=== PATIENT | male | born 1930 | race Caucasian/White ===

== ENCOUNTER → 2017-02-11 | Outpatient (REF) | payer MEDICARE, OTHER ==
[~2017-02-11] MED LIST: ASPI325T OR; ASPI81TA83 OR; ATEN25TA OR; COZA50TA18 OR; LEVO112T OR; NITR0.4S SL; TERA2CAP3 OR; ZOCO5TAB OR
[2017-02-11 14:21] LABS: BASO % 0.3 % (0.0-1.0); EOS # 0.2 K/mm3 (0.0-0.50); EOS % 4.1 % (0.0-3.0); LARGE UNSTAINED CELL # 0.1 K/mm3 (0.0-0.4); LARGE UNSTAINED CELL % 2.6 % (0.0-4.0); LYMPH # 1.2 K/mm3 (1.5-4.5); LYMPH % 22.2 % (24.0-44.0); MEAN CORPUSCULAR HEMOGLOBIN 30.5 pg (27.0-33.0); MEAN CORPUSCULAR HGB CONC 33.1 g/dl (32.0-36.5); MEAN CORPUSCULAR VOLUME 92.3 fl (80.0-96.0); MONO # 0.3 K/mm3 (0.0-0.8); MONO % 5.9 % (0.0-5.0); NEUTROPHILS # 3.5 K/mm3 (1.8-7.7); NEUTROPHILS % 64.8 % (36.0-66.0); PLATELET COUNT, AUTOMATED 188 k/mm3 (150-450); RED CELL DISTRIBUTION WIDTH 13.8 % (11.5-14.5); WHITE BLOOD COUNT 5.4 K/mm3 (4.0-10.0)
[2017-02-11 14:34] LABS: ALBUMIN 3.5 GM/DL (3.2-5.2); ALKALINE PHOSPHATASE 90 U/L (45-117); ALT/SGPT 22 U/L (12-78); ANION GAP 6 MEQ/L (8-16); AST/SGOT 21 U/L (15-37); BILIRUBIN,TOTAL 0.8 MG/DL (0.2-1.0); BLOOD UREA NITROGEN 20 MG/DL (7-18); CALCIUM LEVEL 9.1 MG/DL (8.8-10.2); CARBON DIOXIDE LEVEL 31 MEQ/L (21-32); CHLORIDE LEVEL 103 MEQ/L (98-107); CHOLESTEROL LEVEL 166 MG/DL (<200); CREATININE FOR GFR 0.95 MG/DL (0.70-1.30); GLOMERULAR FILTRATION RATE > 60.0 (>35); GLUCOSE, FASTING 86 MG/DL (83-110); POTASSIUM SERUM 4.5 MEQ/L (3.5-5.1); SODIUM LEVEL 140 MEQ/L (136-145); TOTAL PROTEIN 6.2 GM/DL (6.4-8.2); TRIGLYCERIDES LEVEL 66 MG/DL (<150)
== END ==
LOC: M LAB REF 12:25
PROVIDERS: ATTEND Family Medicine
DX: E03.9 Hypothyroidism, unspecified (principal); E53.8 Deficiency of other specified B group vitamins; R73.01 Impaired fasting glucose
CPT/HCPCS: 80053; 80061; 81001; 82043; 83036; 84443; 85025; G0103

== ENCOUNTER → 2017-02-26 | Outpatient (CLI) | payer MEDICARE, OTHER ==
--- NOTE | 2017-02-26 11:09 | REP ---
Clinical: Pain. Technique: AP, lateral, bilateral oblique views of the right and left foot. Findings: Age-related arthritic degenerative changes (left greater than right) include subchondral sclerosis, joint space narrowing and subtle marginal spurring at the interphalangeal joints as well as slightly more pronounced degenerative changes at the first tarsometatarsal joints (left greater than right). Mild hallux valgus deformity of the left first digit is also suggested. Degenerative changes to the midfoot including tarsometatarsal joints also includes subchondral sclerosis and areas of joint space narrowing less pronounced than the interphalangeal joints. No acute fracture dislocation. Impression: Moderate arthritic degenerative changes (left greater than right). Signed by Fermin Benitez MD 02/26/2017 11:00 A
== END ==
LOC: M WUC 10:09
PROVIDERS: ATTEND Physician Assistant Medical
DX: M19.071 Primary osteoarthritis, right ankle and foot (principal); M19.072 Primary osteoarthritis, left ankle and foot

== ENCOUNTER → 2017-02-28 | Outpatient (CLI) | payer MEDICARE, OTHER ==
[~2017-02-28] MED LIST changes: +GASTROGRAFIN SOLUTION 30ML (Q9963) As Ordered ONE; +ISOVUE-370 76% 100ML VIAL (Q9967) As Ordered ONE
--- NOTE | 2017-02-28 15:38 | REP ---
Clinical: Inguinal hernia with pain. Technique: Axial contrast enhanced images from the lung bases to the pubic symphysis using oral and 100 ml Isovue 370 intravenous contrast material with precontrast and delayed images of the abdomen as well as coronal and sagittal re-formations. Comparison: 09/11/2006. Findings: Moderate circumferential pleuroparenchymal changes involving the visualized right hemithorax with chronic right basilar atelectasis and calcification remain essentially unchanged compared to 2005. Cardiomegaly is identified along with mild chronic pulmonary vascular congestion. Liver, pancreas, gallbladder, and bilateral adrenal glands are normal. Splenic calcifications consistent with prior granulomatous disease. Kidneys demonstrate bilateral cysts measuring 3.2 cm in the right kidney upper pole and 2.2 cm left kidney mid pole. No associated hydronephrosis or nephrolithiasis. A small moderate gastric hiatal hernia is noted. Evaluation of the enteric system demonstrates moderate fecal stasis along with scattered colonic and sigmoid diverticula and no evidence for acute diverticulitis. There is a small left inguinal hernia containing a single loop of nonobstructed small bowel. Pelvis demonstrates partially collapsed bladder with mass effect due to enlarged prostate gland. No ascites. No free air. No significant intraperitoneal or retroperitoneal adenopathy. Atherosclerotic changes to the vasculature noted without aortic aneurysm or dissection. Skeletal structures demonstrate degenerative changes without focal osseous abnormality. Impression: 1. Small left inguinal hernia containing nonobstructed loop of small bowel. A 2 cm fat containing periumbilical hernia also identified. 2. Bilateral renal cysts up to 3.2 cm. 3. Colonic diverticula without acute diverticulitis. 4. Heterogeneous enlarged prostate gland with mass effect on the base of the bladder and scattered parenchymal calcifications. 5. Lung bases demonstrate chronic pleuroparenchymal changes, atelectasis and calcification involving the right hemithorax essentially stable compared to 2005. Cardiomegaly and chronic pulmonary vascular congestion is also suggested. Signed by Fermin Benitez MD 02/28/2017 03:30 P
== END ==
LOC: M RAD 12:55
PROVIDERS: ATTEND Family Medicine
DX: K40.31 Unilateral inguinal hernia, with obstruction, without gangrene, recurrent (principal); N28.1 Cyst of kidney, acquired; R91.8 Other nonspecific abnormal finding of lung field
CPT/HCPCS: 74178; G0463; Q9963; Q9967

== ENCOUNTER → 2017-04-01 | Outpatient (CLI) | payer MEDICARE, OTHER ==
[~2017-04-01] MED LIST changes: -GASTROGRAFIN SOLUTION 30ML (Q9963) As Ordered ONE; -ISOVUE-370 76% 100ML VIAL (Q9967) As Ordered ONE
[2017-04-01 15:06] LABS: VITAMIN B12 LEVEL 554 PG/ML (247-911)
[2017-04-01 15:14] LABS: ALBUMIN 3.3 GM/DL (3.2-5.2); ALBUMIN/GLOBULIN RATIO 1.22 (1.00-1.93); ALKALINE PHOSPHATASE 83 U/L (45-117); ALT/SGPT 19 U/L (12-78); ANION GAP 5 MEQ/L (8-16); AST/SGOT 16 U/L (15-37); BILIRUBIN,TOTAL 0.7 MG/DL (0.2-1.0); BLOOD UREA NITROGEN 19 MG/DL (7-18); CALCIUM LEVEL 9.1 MG/DL (8.8-10.2); CARBON DIOXIDE LEVEL 33 MEQ/L (21-32); CHLORIDE LEVEL 99 MEQ/L (98-107); CREATININE FOR GFR 0.99 MG/DL (0.70-1.30); FERRITIN 168 NG/ML (26-388); FREE T4 1.42 NG/DL (0.76-1.46); GLOMERULAR FILTRATION RATE > 60.0 (>35); GLUCOSE, FASTING 111 MG/DL (83-110); MAGNESIUM LEVEL 2.2 MG/DL (1.8-2.4); PERCENT SATURATION 28.6 % (19.7-37.4); SODIUM LEVEL 137 MEQ/L (136-145); TOTAL IRON BINDING CAPACITY 276 UG/DL (250-450)
[2017-04-01 15:22] LABS: POTASSIUM SERUM 5.3 MEQ/L (3.5-5.1)
== END ==
LOC: M WUC 10:44
PROVIDERS: ATTEND Family Medicine
DX: I12.9 Hypertensive chronic kidney disease with stage 1 through stage 4 chronic kidney disease, or unspecified chronic kidney disease (principal); E53.8 Deficiency of other specified B group vitamins; E03.9 Hypothyroidism, unspecified; R73.01 Impaired fasting glucose; N18.9 Chronic kidney disease, unspecified

== ENCOUNTER 2017-05-13 08:45 | Day surgery (SDC) | payer MEDICARE, OTHER ==
[~2017-05-13] VITALS: Ht 180.3 cm; Wt 81.6 kg
[~2017-05-13 08:45] MED LIST changes: +ASPI1TAB PO; +CALC-195 PO; +CODCAP PO; +FLOM5CAP PO; +FURO20TA2 PO; +GINS100C2 PO; +LEVO112T2 PO; +LOSA25TA8 PO; +MULT1TAB10 PO; +NITR0.4S14 SL; +RED1CAP5 PO; +VITA500C24 PO; +VITA50TA43 PO
[2017-05-13] MEDS ORDERED: LR 1,000 ML IV ONE (09:00)
[2017-05-13] MEDS ORDERED: LR 1,000 ML IV SCH ×3 (09:00→13:15)
[2017-05-13] MEDS ORDERED: ceFAZolin SOD 1 GM in D5W MINI-BAG PLUS 50 ML IV ONE (09:00)
[2017-05-13] MEDS ORDERED: LIDOCAINE 1% MDV 20ML VIAL SC PRN (09:00)
[2017-05-13] MEDS ORDERED: BUPIVACAINE/EPIN 0.25% 30 ML VIAL As Ordered ONE (11:03)
[2017-05-13] MEDS ORDERED: fentaNYL 100 MCG/2 ML INJECTION (J3010) As Ordered ONE (11:42)
[2017-05-13] MEDS ORDERED: PROPOFOL 500 MG/50 ML VIAL As Ordered ONE (11:42)
[2017-05-13] MEDS ORDERED: ROCURONIUM BROMIDE 50 MG/5 ML VIAL/SYRINGE As Ordered ONE (11:42)
[2017-05-13] MEDS ORDERED: MIDAZOLAM INJ 2 MG/2 ML VIAL (J2250) As Ordered ONE (11:42)
[2017-05-13] MEDS ORDERED: dexameTHASONE 4 MG/ML 1ML VIAL (J1100) As Ordered ONE (11:42)
[2017-05-13] MEDS ORDERED: ONDANSETRON 4MG/2ML VIAL (J2405) As Ordered ONE (11:43)
[2017-05-13] MEDS ORDERED: ePHEDrine SULFATE 25 MG/5 ML(5MG/ML) SYRINGE As Ordered ONE (11:44)
[2017-05-13] MEDS ORDERED: LIDOCAINE 2% INJ 100 MG/5 ML SDV (FOR ANES.) As Ordered ONE (11:44)
[2017-05-13] MEDS ORDERED: PHENYLephrine HCL 500 MCG/5 ML (100MCG/ML) SYRINGE (J2370) As Ordered ONE (12:10)
[2017-05-13] MEDS ORDERED: GLYCOPYRROLATE INJ 0.2 MG/ML 2 ML VIAL As Ordered ONE (12:21)
[2017-05-13] MEDS ORDERED: NEOSTIGMINE 1MG/ML 5 ML SYRINGE (J2710) As Ordered ONE (12:21)
--- NOTE | 2017-05-13 13:11 | RO ---
DATE OF PROCEDURE: 05/13/2017 PREOPERATIVE DIAGNOSIS: Recurrent left inguinal hernia. POSTOPERATIVE DIAGNOSIS: Recurrent left inguinal hernia. PROCEDURE: Repair of recurrent left inguinal hernia with Ultra Pro mesh. SURGEON: Aftab Heller MD ANESTHESIA: General endotracheal anesthesia. ESTIMATED BLOOD LOSS: Minimal. FLUIDS: Crystalloid. PROCEDURE SUMMARY: The patient was brought to the operating room and was given general anesthesia. After adequate anesthesia was established, the patient was prepped and draped in the usual sterile fashion. Next, a left inguinal incision was made with a skin knife. Electrocautery was used to cut through dermis and underlying subcutaneous tissue down to the external oblique muscle fibers. External oblique muscle fibers were opened along its length down through the external ring. The cord and its structures were mobilized off the inguinal ligament and Italo drain was placed around this. The patient had a small lipoma in the cord lateral to the cord structures itself that was dissected down to the level of the cord and transected at its base with electrocautery; however, there was a moderately large direct inguinal hernia that was medial to the cord structures that was mobilized off the cord structures itself, off underlying structures and tissue and off transversus abdominis muscle. The neck of the sac extended to the transversus abdominis muscle medial to the internal ring. The previous mesh could be felt and did not extend below this area and I anticipate the mesh itself probably folded up the base of this and the hernia was able to go behind the mesh itself into this direct area. In any case, this was imbricated with #2-0 Vicryl suture in the transverse abdominis muscle layer. Once this was imbricated nicely and the hole was closed, the Ultra Pro mesh was cut to the appropriate size and tacked in at the pubis and along the internal oblique with Secure Strap along the inguinal ligament and interrupted #2-0 PDS was placed. The tails of the mesh were brought together with #2-0 Vicryl and #2-0 Vicryl was used to close the external oblique over the top of the mesh and the cord structures. The ilioinguinal nerve was kept with the cord structures throughout the dissection and left in place with the Italo drain around this. The Wallace's layer was brought together with #3-0 Vicryl. #3-0 Vicryl was used to approximate dermis and #4-0 Vicryl subcuticular was used to approximate the skin. Steri-Strips and dry sterile dressing was applied. The patient was brought to the recovery room awake, alert, hemodynamically stable. Sponge and needle counts correct times two.
[2017-05-13] MEDS ORDERED: ONDANSETRON 4MG/2ML VIAL (J2405) IV PRN ×2 (13:15)
[2017-05-13] MEDS ORDERED: MORPHINE 2 MG/ML 1ML SYRINGE IV PRN (13:15)
[2017-05-13] MEDS ORDERED: fentaNYL 100 MCG/2 ML INJECTION (J3010) IV PRN (13:15)
[2017-05-13] MEDS ORDERED: NORCO, ANEXSIA 5/325MG TABLET (HYDROcodone/ACETAMINOPHEN) PO PRN (13:15)
[2017-05-13] MEDS ORDERED: PERCOCET 5MG/325MG TAB PO PRN (13:15)
[2017-05-13] MEDS ORDERED: HYDROmorphone HCL 1 MG/ML SYRINGE (J1170) IV PRN (13:15)
[2017-05-13 14:42] VITALS: BP 151/65
== END 2017-05-13 15:02 | disposition home or self-care (01) ==
LOC: M SDC 08:45
PROVIDERS: ATTEND Surgery
DX: K40.91 Unilateral inguinal hernia, without obstruction or gangrene, recurrent (principal); I10 Essential (primary) hypertension; I25.10 Atherosclerotic heart disease of native coronary artery without angina pectoris; I25.2 Old myocardial infarction; E03.9 Hypothyroidism, unspecified; G47.30 Sleep apnea, unspecified; K21.9 Gastro-esophageal reflux disease without esophagitis; N40.0 Benign prostatic hyperplasia without lower urinary tract symptoms; Z88.2 Allergy status to sulfonamides; Z79.82 Long term (current) use of aspirin; Z79.899 Other long term (current) drug therapy
CPT/HCPCS: 49520; C1781; J0690; J1100; J2250; J2370; J2405; J2710; J3010

== ENCOUNTER → 2017-06-30 | Outpatient (CLI) | payer MEDICARE, OTHER ==
[2017-06-30 18:24] LABS: VITAMIN B12 LEVEL 436 PG/ML (247-911)
[2017-06-30 18:30] LABS: ALBUMIN 3.2 GM/DL (3.2-5.2); ALBUMIN/GLOBULIN RATIO 1.33 (1.00-1.93); ALKALINE PHOSPHATASE 86 U/L (45-117); ALT/SGPT 20 U/L (12-78); ANION GAP 2 MEQ/L (8-16); AST/SGOT 15 U/L (15-37); BILIRUBIN,TOTAL 0.6 MG/DL (0.2-1.0); BLOOD UREA NITROGEN 16 MG/DL (7-18); CALCIUM LEVEL 9.1 MG/DL (8.8-10.2); CARBON DIOXIDE LEVEL 33 MEQ/L (21-32); CHLORIDE LEVEL 102 MEQ/L (98-107); FERRITIN 132 NG/ML (26-388); FREE T4 1.04 NG/DL (0.76-1.46); GLOMERULAR FILTRATION RATE > 60.0 (>35); GLUCOSE, FASTING 73 MG/DL (83-110); MAGNESIUM LEVEL 2.2 MG/DL (1.8-2.4); PERCENT SATURATION 29.3 % (19.7-50.0); SODIUM LEVEL 137 MEQ/L (136-145); TOTAL IRON BINDING CAPACITY 263 UG/DL (250-450); TOTAL PROTEIN 5.6 GM/DL (6.4-8.2)
[2017-06-30 18:33] LABS: POTASSIUM SERUM 5.3 MEQ/L (3.5-5.1)
== END ==
LOC: M WUC 11:28
PROVIDERS: ATTEND Family Medicine
DX: I10 Essential (primary) hypertension (principal); E53.8 Deficiency of other specified B group vitamins; E03.9 Hypothyroidism, unspecified; R73.01 Impaired fasting glucose; N40.1 Benign prostatic hyperplasia with lower urinary tract symptoms; E78.2 Mixed hyperlipidemia

== ENCOUNTER → 2017-07-04 | Outpatient (REF) | payer MEDICARE, OTHER | LOC: M SFHCPLAZ 12:33 | PROVIDERS: ATTEND Family Medicine | DX: N40.1 Benign prostatic hyperplasia with lower urinary tract symptoms (principal) | CPT/HCPCS: 81001; 87086; G0463 ==

== ENCOUNTER → 2017-07-10 | Outpatient (CLI) | payer MEDICARE, OTHER | LOC: M RAD 12:37 | PROVIDERS: ATTEND Family Medicine | DX: M43.06 Spondylolysis, lumbar region (principal) ==

== ENCOUNTER → 2018-02-04 | Outpatient (CLI) | payer MEDICARE, OTHER ==
[2018-02-04 11:59] LABS: BASO % 0.5 % (0.0-1.0); EOS # 0.2 10^3/uL (0.0-0.50); EOS % 4.1 % (0.0-3.0); HEMATOCRIT 45.2 % (42.0-52.0); IMMATURE GRANULOCYTE % 0.3 % (0-3.0); LYMPH # 1.3 10^3/uL (1.5-4.5); LYMPH % 21.5 % (24.0-44.0); MEAN CORPUSCULAR HGB CONC 33.2 g/dl (32.0-36.5); MEAN CORPUSCULAR VOLUME 87.3 fl (80.0-96.0); MONO # 0.6 10^3/uL (0.0-0.8); NEUTROPHILS # 3.7 10^3/uL (1.8-7.7); NEUTROPHILS % 63.6 % (36.0-66.0); PLATELET COUNT, AUTOMATED 200 10^3/uL (150-450); RED BLOOD COUNT 5.18 10^6/uL (4.30-6.10); RED CELL DISTRIBUTION WIDTH 14.8 % (11.5-14.5); WHITE BLOOD COUNT 5.8 10^3/uL (4.0-10.0)
[2018-02-04 12:00] LABS: APPEARANCE, URINE CLEAR (CLEAR); BACTERIA, URINE AUTO NEGATIVE (NEGATIVE); BILIRUBIN, URINE AUTO NEGATIVE (NEGATIVE); BLOOD, URINE BLOOD NEGATIVE (NEGATIVE); COLOR, URINE YELLOW (YELLOW); GLUCOSE, URINE (UA) AUTO NEGATIVE (NEGATIVE); KETONE, URINE AUTO NEGATIVE (NEGATIVE); LEUKOCYTE ESTERASE, URINE AUTO NEGATIVE (NEGATIVE); NITRITE, URINE AUTO NEGATIVE (NEGATIVE); PROTEIN, URINE AUTO NEGATIVE (NEGATIVE); RBC, URINE AUTO 2 /HPF (0-3); SPECIFIC GRAVITY URINE AUTO 1.013 (1.002-1.035); SQUAMOUS EPITHELIAL CELL UR AU 0 /HPF (0-6); UROBILINOGEN, URINE AUTO 0.2 mg/dL (0.0-2.0); WBC, URINE AUTO 0 /HPF (0-3)
[2018-02-04 12:08] LABS: HEMATOCRIT 45.2 % (42.0-52.0)
[2018-02-04 12:16] LABS: C REACTIVE PROTEIN QUANTITATIV < 0.30 MG/DL (0.00-0.30); CHOLESTEROL LEVEL 113 MG/DL (<200); CHOLESTEROL RISK RATIO 1.765 (<5); FREE T4 1.35 NG/DL (0.76-1.46); HDL CHOLESTEROL 64 MG/DL (>40); LDL CHOLESTEROL 37.6 MG/DL (<100); NON-HDL-C 49 MG/DL; PROSTATIC SPECIFIC AG MONITOR 1.08 NG/ML (< 4.0); TRIGLYCERIDES LEVEL 57 MG/DL (<150)
[2018-02-04 12:33] LABS: VITAMIN B12 LEVEL 356 PG/ML (247-911)
[2018-02-04 13:24] LABS: ESTIMATED AVERAGE GLUCOSE 117 MG/DL (60-110); HEMOGLOBIN A1c 5.7 %
[2018-02-06 14:32] LABS: PRETREATED FOLATE FOR RBCFOL 11.5 NG/ML; RBC FOLATE 534.3 NG/ML (280-791)
== END ==
LOC: M WUC 08:25
DX: N40.1 Benign prostatic hyperplasia with lower urinary tract symptoms (principal); E53.8 Deficiency of other specified B group vitamins; E03.9 Hypothyroidism, unspecified; R73.01 Impaired fasting glucose; M47.816 Spondylosis without myelopathy or radiculopathy, lumbar region; E78.2 Mixed hyperlipidemia
CPT/HCPCS: 84443

== ENCOUNTER 2018-03-18 14:18 | Emergency (ER) | payer MEDICARE, OTHER | END 2018-03-18 15:04 | disposition home or self-care (01) | LOC: M ED 14:18 | DX: S00.93XA Contusion of unspecified part of head, initial encounter (principal); W20.8XXA Other cause of strike by thrown, projected or falling object, initial encounter; Y92.009 Unspecified place in unspecified non-institutional (private) residence as the place of occurrence of the external cause; I10 Essential (primary) hypertension; I25.10 Atherosclerotic heart disease of native coronary artery without angina pectoris; G47.33 Obstructive sleep apnea (adult) (pediatric); E78.70 Disorder of bile acid and cholesterol metabolism, unspecified; E07.9 Disorder of thyroid, unspecified; M51.9 Unspecified thoracic, thoracolumbar and lumbosacral intervertebral disc disorder; Z79.01 Long term (current) use of anticoagulants; Z79.82 Long term (current) use of aspirin; Z79.890 Hormone replacement therapy; Z79.899 Other long term (current) drug therapy; Z95.1 Presence of aortocoronary bypass graft; Z95.2 Presence of prosthetic heart valve; Z98.890 Other specified postprocedural states; Z88.1 Allergy status to other antibiotic agents; Z88.2 Allergy status to sulfonamides | CPT/HCPCS: 70450 ==

== ENCOUNTER → 2018-05-04 | Outpatient (CLI) | payer MEDICARE, OTHER ==
[2018-05-04 12:59] LABS: BASO % 0.5 % (0.0-1.0); EOS # 0.3 10^3/uL (0.0-0.50); EOS % 4.3 % (0.0-3.0); HEMATOCRIT 45.4 % (42.0-52.0); HEMOGLOBIN 15.2 g/dl (13.5-17.5); IMMATURE GRANULOCYTE % 0.3 % (0-3.0); LYMPH # 1.2 10^3/uL (1.5-4.5); LYMPH % 20.4 % (24.0-44.0); MEAN CORPUSCULAR HEMOGLOBIN 29.1 pg (27.0-33.0); MEAN CORPUSCULAR HGB CONC 33.5 g/dl (32.0-36.5); MONO # 0.5 10^3/uL (0.0-0.8); MONO % 8.2 % (0.0-5.0); NEUTROPHILS % 66.3 % (36.0-66.0); PLATELET COUNT, AUTOMATED 184 10^3/uL (150-450); RED BLOOD COUNT 5.22 10^6/uL (4.30-6.10); RED CELL DISTRIBUTION WIDTH 14.8 % (11.5-14.5); RETIC HEMOGLOBIN EQUIVALENT 34.1 pg (24-36); RETICULOCYTE # 59.5 10^9/L (17-77); RETICULOCYTE % 1.1 % (0.5-1.5); WHITE BLOOD COUNT 6.1 10^3/uL (4.0-10.0)
[2018-05-04 13:21] LABS: PTH INTACT 56.5 PG/ML (18.5-88.0); VITAMIN B12 LEVEL 660 PG/ML (247-911)
[2018-05-04 13:28] LABS: ALBUMIN 3.4 GM/DL (3.2-5.2); ALBUMIN/GLOBULIN RATIO 1.21 (1.00-1.93); ALKALINE PHOSPHATASE 92 U/L (45-117); ALT/SGPT 29 U/L (12-78); ANION GAP 5 MEQ/L (8-16); AST/SGOT 20 U/L (7-37); BILIRUBIN,TOTAL 0.9 MG/DL (0.2-1.0); BLOOD UREA NITROGEN 20 MG/DL (7-18); CARBON DIOXIDE LEVEL 32 MEQ/L (21-32); CHLORIDE LEVEL 105 MEQ/L (98-107); CREATININE FOR GFR 0.96 MG/DL (0.70-1.30); GLOMERULAR FILTRATION RATE > 60.0 (>35); GLUCOSE, FASTING 92 MG/DL (70-100); MAGNESIUM LEVEL 2.1 MG/DL (1.8-2.4); POTASSIUM SERUM 4.7 MEQ/L (3.5-5.1); SODIUM LEVEL 142 MEQ/L (136-145); TOTAL PROTEIN 6.2 GM/DL (6.4-8.2)
[2018-05-04 14:06] LABS: ESTIMATED AVERAGE GLUCOSE 123 MG/DL (60-110); HEMOGLOBIN A1c 5.9 %
== END ==
LOC: M WUC 08:11
DX: E53.8 Deficiency of other specified B group vitamins (principal); E55.9 Vitamin D deficiency, unspecified; R73.01 Impaired fasting glucose; I10 Essential (primary) hypertension; E03.9 Hypothyroidism, unspecified
CPT/HCPCS: 83735

== ENCOUNTER → 2018-05-22 | Outpatient (REF) | payer MEDICARE, OTHER | LOC: M SFHCPLAZ 12:04 | DX: N40.1 Benign prostatic hyperplasia with lower urinary tract symptoms (principal); Z53.8 Procedure and treatment not carried out for other reasons ==

== ENCOUNTER → 2018-05-27 | Outpatient (CLI) | payer MEDICARE, OTHER | LOC: M RAD 14:57 | DX: N40.1 Benign prostatic hyperplasia with lower urinary tract symptoms (principal) | CPT/HCPCS: 76857 ==

== ENCOUNTER → 2018-06-05 | Outpatient (REF) | payer MEDICARE, OTHER ==
[2018-06-05 15:29] LABS: BASO % 0.4 % (0.0-1.0); EOS # 0.1 10^3/uL (0.0-0.50); EOS % 2.5 % (0.0-3.0); HEMATOCRIT 42.8 % (42.0-52.0); HEMOGLOBIN 14.1 g/dl (13.5-17.5); IMMATURE GRANULOCYTE % 0.4 % (0-3.0); LYMPH % 17.9 % (24.0-44.0); MEAN CORPUSCULAR HEMOGLOBIN 29.4 pg (27.0-33.0); MEAN CORPUSCULAR HGB CONC 32.9 g/dl (32.0-36.5); MEAN CORPUSCULAR VOLUME 89.4 fl (80.0-96.0); MONO # 0.6 10^3/uL (0.0-0.8); MONO % 9.8 % (0.0-5.0); NEUTROPHILS # 3.9 10^3/uL (1.8-7.7); PLATELET COUNT, AUTOMATED 160 10^3/uL (150-450); RED BLOOD COUNT 4.79 10^6/uL (4.30-6.10); RED CELL DISTRIBUTION WIDTH 14.9 % (11.5-14.5); RETIC HEMOGLOBIN EQUIVALENT 35.2 pg (24-36); RETICULOCYTE # 56.5 10^9/L (17-77); RETICULOCYTE % 1.2 % (0.5-1.5); WHITE BLOOD COUNT 5.7 10^3/uL (4.0-10.0)
[2018-06-05 15:33] LABS: APPEARANCE, URINE HAZY (CLEAR); BACTERIA, URINE AUTO NEGATIVE (NEGATIVE); BILIRUBIN, URINE AUTO NEGATIVE (NEGATIVE); BLOOD, URINE BLOOD NEGATIVE (NEGATIVE); COLOR, URINE YELLOW (YELLOW); GLUCOSE, URINE (UA) AUTO NEGATIVE (NEGATIVE); KETONE, URINE AUTO NEGATIVE (NEGATIVE); LEUKOCYTE ESTERASE, URINE AUTO NEGATIVE (NEGATIVE); NITRITE, URINE AUTO NEGATIVE (NEGATIVE); PROTEIN, URINE AUTO NEGATIVE (NEGATIVE); RBC, URINE AUTO 2 /HPF (0-3); SPECIFIC GRAVITY URINE AUTO 1.019 (1.002-1.035); SQUAMOUS EPITHELIAL CELL UR AU 0 /HPF (0-6); UROBILINOGEN, URINE AUTO 0.2 mg/dL (0.0-2.0); WBC, URINE AUTO 0 /HPF (0-3)
[2018-06-05 15:44] LABS: ESTIMATED AVERAGE GLUCOSE 117 MG/DL (60-110); HEMOGLOBIN A1c 5.7 %
[2018-06-05 15:49] LABS: ALKALINE PHOSPHATASE 107 U/L (45-117); ALT/SGPT 23 U/L (12-78); ANION GAP 7 MEQ/L (8-16); AST/SGOT 16 U/L (7-37); BILIRUBIN,TOTAL 0.5 MG/DL (0.2-1.0); BLOOD UREA NITROGEN 20 MG/DL (7-18); CALCIUM LEVEL 8.5 MG/DL (8.8-10.2); CARBON DIOXIDE LEVEL 30 MEQ/L (21-32); CHLORIDE LEVEL 101 MEQ/L (98-107); CREATININE FOR GFR 0.95 MG/DL (0.70-1.30); FREE T4 1.15 NG/DL (0.76-1.46); GLOMERULAR FILTRATION RATE > 60.0 (>35); GLUCOSE, FASTING 106 MG/DL (70-100); POTASSIUM SERUM 4.5 MEQ/L (3.5-5.1); SODIUM LEVEL 138 MEQ/L (136-145); TOTAL PROTEIN 5.5 GM/DL (6.4-8.2)
[2018-06-05 21:41] LABS: PSA SCREENING 1.15 NG/ML (< 4.0)
== END ==
LOC: M SFHCPLAZ 09:12
DX: N40.1 Benign prostatic hyperplasia with lower urinary tract symptoms (principal); E03.9 Hypothyroidism, unspecified; R73.01 Impaired fasting glucose; N18.3 Chronic kidney disease, stage 3 (moderate); Z12.5 Encounter for screening for malignant neoplasm of prostate
CPT/HCPCS: 84443

== ENCOUNTER → 2018-09-21 | Outpatient (REF) | payer MEDICARE, OTHER ==
[~2018-09-21] MED LIST changes: -CODCAP PO; +CODCAP4 PO; +FLOM0.4C39 PO; -FLOM5CAP PO; +LIPI20TA PO; +LOSA25TA33 PO; -LOSA25TA8 PO
[2018-09-21 13:39] LABS: APPEARANCE, URINE HAZY (CLEAR); BACTERIA, URINE AUTO NEGATIVE (NEGATIVE); BILIRUBIN, URINE AUTO NEGATIVE (NEGATIVE); BLOOD, URINE BLOOD NEGATIVE (NEGATIVE); COLOR, URINE YELLOW (YELLOW); GLUCOSE, URINE (UA) AUTO NEGATIVE (NEGATIVE); KETONE, URINE AUTO NEGATIVE (NEGATIVE); LEUKOCYTE ESTERASE, URINE AUTO NEGATIVE (NEGATIVE); MUCUS, URINE SMALL (NEGATIVE); NITRITE, URINE AUTO NEGATIVE (NEGATIVE); PROTEIN, URINE AUTO NEGATIVE (NEGATIVE); RBC, URINE AUTO 4 /HPF (0-3); SPECIFIC GRAVITY URINE AUTO 1.018 (1.002-1.035); SQUAMOUS EPITHELIAL CELL UR AU 0 /HPF (0-6); UROBILINOGEN, URINE AUTO 0.2 mg/dL (0.0-2.0); WBC, URINE AUTO 1 /HPF (0-3)
== END ==
LOC: M SFHCPLAZ 12:51
PROVIDERS: ATTEND Nurse Practitioner Family
DX: N40.1 Benign prostatic hyperplasia with lower urinary tract symptoms (principal)

== ENCOUNTER 2018-12-08 17:44 | Inpatient (IN) | payer MEDICARE, OTHER ==
[~2018-12-08] VITALS: Ht 177.8 cm; Wt 74.9 kg
[~2018-12-08 17:44] MED LIST changes: +LOSA25TA14 PO; -LOSA25TA33 PO
[2018-12-08 18:10] LABS: VENOUS BASE EXCESS 0.1 (-2.0-2.0); VENOUS O2 SATURATION 88.7 % (60.0-80.0); VENOUS PARTIAL PRESSURE CO2 36.8 mmHg (38.0-50.0); VENOUS PARTIAL PRESSURE O2 52.9 mmHg (30.0-50.0); VENOUS PH 7.433 UNITS (7.330-7.430); VENOUS STANDARD HCO3 24.4 MEQ/L; VENOUS TOTAL CO2 25.2 MEQ/L (24.0-28.0)
[2018-12-08 18:13] LABS: BASO % 0.2 % (0.0-1.0); HEMATOCRIT 38.5 % (42.0-52.0); HEMOGLOBIN 13.1 g/dl (13.5-17.5); LYMPH # 0.3 10^3/uL (1.5-4.5); LYMPH % 5.5 % (24.0-44.0); MEAN CORPUSCULAR HEMOGLOBIN 28.5 pg (27.0-33.0); MEAN CORPUSCULAR VOLUME 83.7 fl (80.0-96.0); MONO # 0.4 10^3/uL (0.0-0.8); MONO % 8.7 % (0.0-5.0); NEUTROPHILS # 3.9 10^3/uL (1.8-7.7); NEUTROPHILS % 84.9 % (36.0-66.0); PLATELET COUNT, AUTOMATED 139 10^3/uL (150-450); WHITE BLOOD COUNT 4.6 10^3/uL (4.0-10.0)
--- NOTE | 2018-12-08 18:27 | REP ---
Clinical: Altered mental status. Comparison: 10/23/2018. Findings: Mediastinum and cardiac silhouette are stable. Evidence of prior sternotomy, CABG, and aortic valve repair. Lung fox demonstrate diffuse chronic interstitial changes primarily involving the bilateral bases (right greater than left) with chronic right pleural reaction suggested. Right apical opacity remain stable. Skeletal structures intact. Impression: Chronic stable changes including right apical opacity and bibasilar fibro atelectatic changes. Electronically Signed by Fermin Benitez MD 12/08/2018 06:17 P
[2018-12-08 18:41] LABS: ALT/SGPT 26 U/L (12-78); BILIRUBIN,DIRECT 0.2 MG/DL (0.0-0.2); BILIRUBIN,TOTAL 0.6 MG/DL (0.2-1.0); BLOOD UREA NITROGEN 12 MG/DL (7-18); CALCIUM LEVEL 7.7 MG/DL (8.8-10.2); CARBON DIOXIDE LEVEL 24 MEQ/L (21-32); CHLORIDE LEVEL 92 MEQ/L (98-107); CPK CREATINE PHOSPHOKINASE 98 U/L (39-308); CREATININE FOR GFR 0.81 MG/DL (0.70-1.30); GLOMERULAR FILTRATION RATE > 60.0 (>35); GLUCOSE, FASTING 121 MG/DL (70-100); MB/CK RELATIVE INDEX 1.73 (< OR =4); SODIUM LEVEL 126 MEQ/L (136-145); TOTAL PROTEIN 5.3 GM/DL (6.4-8.2); TROPONIN I 0.03 NG/ML (< 0.10)
[2018-12-08 19:14] LABS: INFLUENZA A AMPLIFICATION POSITIVE (NEGATIVE); INFLUENZA B AMPLIFICATION NEGATIVE (NEGATIVE)
[2018-12-08] MEDS ORDERED: OSELTAMIVIR PHOSPHATE 75 MG CAP (TAMIFLU) PO ONE (19:45)
[2018-12-08] MEDS ORDERED: NS 1,000 ML IV ONE (19:45)
[2018-12-08] MEDS ORDERED: VITA10002 PO (20:18)
[2018-12-08] MEDS ORDERED: CLOP75TA2 PO (20:18)
[2018-12-08] MEDS ORDERED: ATOR40TA75 PO (20:18)
[2018-12-08] MEDS ORDERED: FINA5TAB2 PO (20:18)
[2018-12-08] MEDS ORDERED: ACETAMINOPHEN 325 MG TAB As Ordered ONE (20:27)
[2018-12-08] MEDS ORDERED: ACETAMINOPHEN TAB 650MG DOSE (2X325MG) PO ONE (20:45)
[2018-12-08] MEDS: NS 1,000 ML IV SCH (23:42)
[2018-12-08] MEDS: LOSARTAN 25 MG TAB PO SCH (23:43)
[2018-12-09 00:15] VITALS: BP 120/55
[2018-12-09 04:00] VITALS: BP 128/57
[2018-12-09 06:00] VITALS: BP 122/62
[2018-12-09] MEDS: LEVOTHYROXINE 112MCG TABLET (0.112MG) PO SCH (06:04)
[2018-12-09 06:12] LABS: BASO % 0.3 % (0.0-1.0); EOS % 0.3 % (0.0-3.0); HEMATOCRIT 34.8 % (42.0-52.0); LYMPH # 0.7 10^3/uL (1.5-4.5); LYMPH % 17.8 % (24.0-44.0); MEAN CORPUSCULAR HEMOGLOBIN 28.6 pg (27.0-33.0); MEAN CORPUSCULAR HGB CONC 34.5 g/dl (32.0-36.5); MEAN CORPUSCULAR VOLUME 82.9 fl (80.0-96.0); MONO # 0.6 10^3/uL (0.0-0.8); MONO % 13.8 % (0.0-5.0); NEUTROPHILS # 2.7 10^3/uL (1.8-7.7); NEUTROPHILS % 67.3 % (36.0-66.0); PLATELET COUNT, AUTOMATED 130 10^3/uL (150-450)
[2018-12-09 06:40] LABS: BLOOD UREA NITROGEN 10 MG/DL (7-18); CALCIUM LEVEL 7.5 MG/DL (8.8-10.2); CARBON DIOXIDE LEVEL 26 MEQ/L (21-32); CHLORIDE LEVEL 98 MEQ/L (98-107); CREATININE FOR GFR 0.74 MG/DL (0.70-1.30); GLOMERULAR FILTRATION RATE > 60.0 (>35); GLUCOSE, FASTING 75 MG/DL (70-100); MAGNESIUM LEVEL 1.8 MG/DL (1.8-2.4); POTASSIUM SERUM 3.7 MEQ/L (3.5-5.1); SODIUM LEVEL 131 MEQ/L (136-145)
[2018-12-09] MEDS: ATORVASTATIN 20 MG TAB PO SCH (09:50)
[2018-12-09] MEDS: NS 1,000 ML IV SCH (09:50)
[2018-12-09] MEDS: ASCORBIC ACID 500 MG TAB PO SCH (09:50)
[2018-12-09] MEDS: ASPIRIN 81 MG ENTERIC TAB PO SCH (09:50)
[2018-12-09] MEDS: CYANOCOBALAMIN 500 MCG TAB PO SCH (09:50)
[2018-12-09] MEDS: CLOPIDOGREL 75 MG TAB PO SCH (09:50)
[2018-12-09] MEDS: ACETAMINOPHEN TAB 650MG DOSE (2X325MG) PO PRN (09:52)
[2018-12-09 10:00] VITALS: BP 133/64
[2018-12-09] MEDS: OSELTAMIVIR PHOSPHATE 75 MG CAP (TAMIFLU) PO SCH ×2 (13:18→21:47)
[2018-12-09] MEDS: HEPARIN SOD (PORCINE) 5000 UNITS/ML VIAL SQ SCH ×2 (13:18→21:48)
--- NOTE | 2018-12-09 13:58 | IPN ---
DATE: 12/09/2018 Walt is seen on [facility]. He was admitted with influenza. History and physical is not back yet, so I do not have all the details. He also had an elevated lactic acid level which tends to prompt admission now, so he was put in the hospital for some intravenous (IV) fluids until his lactic acid level could come down. He has serologic evidence of influenza A. He was started on Tamiflu last evening. His primary care provider is Dr. Jag Ugalde. I reviewed his records. He has a past history of hypertensive heart disease and history of moderate aortic stenosis, status post TAVR, 11/2017, in [place], [place], has coronary artery disease status post coronary artery bypass graft (CABG) times four, 12/2012, and a drug-eluting stent placed in unspecified blood vessel, 08/2017 in [place]. 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 Symptomatically, he feels nearly back to baseline, does not have any chest pain or shortness of breath. He just feels weak and washed out. PHYSICAL EXAM: Afebrile, 122/62, pulse 84, 99% oxygen saturation on room air. He is alert, conversant, no distress. I have not seen him in years, but he recognized me immediately. LUNGS: Clear. HEART: Regular rhythm, 1/6 systolic ejection murmur. ABDOMEN: Soft. Nontender. No masses. No peripheral edema. LABS: Sodium was down to 131, which is improved from 126 yesterday. CBC looks unremarkable. IMPRESSION: 1. Influenza A. Tamiflu has been ordered. 2. Elevated lactate, probably from poor by mouth intake. This has resolved. 3. Prediabetes. Blood sugars are in "control." 4. Coronary artery disease. Stable on his current regimen of Plavix and aspirin. 5. Hyperlipidemia. Continue atorvastatin 40 mg daily. 6. Hypothyroidism. Continue levothyroxine 112 mcg daily. 7. Hypertensive heart disease. Continue losartan 25 mg daily. I expect he will be stable for discharge tomorrow.
[2018-12-09 14:00] VITALS: BP 124/62
--- NOTE | 2018-12-09 14:56 | HPE ---
DATE OF ADMISSION: 12/08/2018 CHIEF COMPLAINT: Lightheadedness. Weakness. ALLERGIES: BACTRIM. PRIMARY CARE PROVIDER: Jag Ugalde MD This is an 88-year-old male who had not been feeling well. He has had upper respiratory symptoms and cough. He went to the urgent care and had been diagnosed with the flu. He was at home, and he was feeling weaker and weaker. He went to get up today and slid to the floor on his knees. He was unable to get up for at least a half an hour. He did finally able to call emergency medical services (EMS) and came to the emergency room. He states he did not hit his head. He did not lose any consciousness. Upon arrival, blood pressure was 149/68, pulse was 58, respirations were 20, temperature was 98.5, pulse oximetry was 95% on room air. The patient had a chest x-ray. It showed chronic stable changes, including right apical opacity and bibasilar fibroatelectatic changes. Laboratory studies were done. White count was 4.6, hemoglobin 13.1, hematocrit 38.5, platelets 139. Sodium was 126, potassium 4, chloride 92, CO2 was 24, BUN 12, creatinine 0.81, calcium 7.7, troponin 0.03, total CK 98, TSH 1.31, lactic acid was 2.1, ammonia level was 18. Venous blood gas (VBG) showed pH of 7.43. Urine was clear, trace ketones, 1+ protein. Assessment was done, and the patient will be admitted to the medical floor. Dehydration, influenza A, hyponatremia. The patient will receive intravenous (IV) hydration. Repeat laboratories. Physical therapy (PT) evaluation. The patient will be admitted to the medical floor. SOCIAL HISTORY: He is . He does not drink alcohol. He does not smoke cigarettes. He does not use recreational drugs. PAST MEDICAL HISTORY: 1. Coronary artery disease. 2. Hypercholesterolemia. 3. Benign prostatic hypertrophy (BPH). 4. Hypothyroidism. 5. Hypertension. 6. Degenerative joint disease. 7. Osteoarthritis. 8. Aortic stenosis, status post transaortic valve replacement (TAVR) in November of 2017. PAST SURGICAL HISTORY: 1. TAVR in November 2017. 2. Coronary artery bypass graft times four in December of 2002. 3. Aortic valve replacement 11/18/2017. 4. Appendectomy in 1970. 5. Lumbar laminectomy in 1985. 6. Coronary artery bypass graft (CABG) times four, Dr. Lobato, in December of 2002. 7. CT-guided biopsy right lung mass benign in May 2006. 8. Colonoscopy normal except hyperplastic polyps in 2003. 9. Left inguinal hernia repair 11/13/2016. 10. Left hernia repair Dr. Heller May 2017. 11. Cardiac stent August 2017. FAMILY HISTORY: Noncontributory. HOME MEDICATIONS: - Lasix 20 mg by mouth daily as needed edema, which I will hold - multivitamin one by mouth daily - calcium/magnesium 750/300-300 mg one tablet daily - cod liver oil one capsule daily - nitroglycerin 0.4 mg sublingual every 5 minutes times three as needed for chest pain - vitamin C 500 mg by mouth daily - aspirin 81 mg by mouth daily - atorvastatin 40 mg by mouth daily - Plavix 75 mg by mouth daily - vitamin B12 500 mcg by mouth daily - finasteride 5 mg by mouth nightly - levothyroxine 112 mcg by mouth daily - losartan 25 mg by mouth each evening - Flomax 0.4 mg by mouth nightly REVIEW OF SYSTEMS: No complaint of headache. No blurred or double vision. He has had fever off and on, chills none currently. No tinnitus. No hoarseness. No difficulty swallowing. He has had lightheadedness. Cardiovascular: No complaints of chest pain, shortness of breath, or palpitations. Respiratory: He has had cough. No mucus production. No hemoptysis. No orthopnea. No wheeze. Gastrointestinal (GI): He has had nausea. No vomiting. No diarrhea. No hematochezia. No melena. No complaints of abdominal pain. Genitourinary (): He has BPH. No hematuria, dysuria. Musculoskeletal: No joint redness or swelling. Endocrine: He has a history of hypothyroidism. Hematological: No history of anemia. Neurological: No history of seizures, paresthesias, paralysis. Psychological: No anxiety, depression, or suicidal ideation. PHYSICAL EXAMINATION: Blood pressure 104/57, pulse 63, respirations 20, temperature 98.5, oxygen (O2) saturation 95% on room air, height 70 inches, weight 74.9 kg, body mass index (BMI) is 23.7. An 88-year-old cooperative male, in no acute distress. The patient is alert and oriented times three. Pupils equal and react to light. Extraocular movements (EOMs) intact Cornea and sclerae clear. Conjunctivae normal. No facial asymmetry. Buccal mucosa dry. Tongue is midline. NECK: Is supple without lymphadenopathy. No thyromegaly. No goiter. CHEST: Has decreased breath sounds. No wheeze or retraction. HEART: Is regular. ABDOMEN: Is soft, nontender, no masses, pulsations, or bruits. No organomegaly. Bowel sounds are positive. GENITOURINARY ()/RECTAL: Not done. EXTREMITIES: No clubbing, cyanosis, or edema. Peripheral pulses equal and palpable bilaterally. IMPRESSION AND PLAN: The patient will be admitted to the medical floor inpatient status to the service of Dr. Perkins for dehydration, influenza A, hyponatremia. 1. Dehydration. Gentle fluid hydration with sodium chloride at 100 mL/h. Monitor intake and output (I and O). 2. Hyponatremia. Recheck complete metabolic panel (CMP) in the a.m. 3. Influenza. Tamiflu 75 by mouth twice a day for 5 days. 4. Hypothyroidism. Continue levothyroxine 112 mcg daily. Thyroid-stimulating hormone (TSH) is therapeutic. 5. Coronary artery disease. Continue Plavix. 6. Hypercholesterolemia. Continue atorvastatin. 7. Deep venous thrombosis (DVT) prophylaxis. Thromboembolic deterrents (TEDs). Heparin subcutaneously. 8. Generalized weakness. Will get a PT evaluation.
--- NOTE | 2018-12-09 20:43 | ECGEPIP ---
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
[2018-12-09] MEDS: FINASTERIDE 5 MG TAB PO SCH (21:47)
[2018-12-09] MEDS: TAMSULOSIN 0.4 MG CAP PO SCH (21:47)
[2018-12-09] MEDS: LOSARTAN 25 MG TAB PO SCH (21:48)
[2018-12-09 22:00] VITALS: BP 147/88
[2018-12-10 02:00] VITALS: BP 137/83
[2018-12-10] MEDS: HEPARIN SOD (PORCINE) 5000 UNITS/ML VIAL SQ SCH (05:45)
[2018-12-10] MEDS: LEVOTHYROXINE 112MCG TABLET (0.112MG) PO SCH (05:45)
[2018-12-10 06:00] VITALS: BP 132/87
[2018-12-10 06:50] LABS: BASO % 0.3 % (0.0-1.0); EOS # 0.1 10^3/uL (0.0-0.50); EOS % 1.5 % (0.0-3.0); HEMATOCRIT 37.8 % (42.0-52.0); HEMOGLOBIN 13.1 g/dl (13.5-17.5); LYMPH # 0.8 10^3/uL (1.5-4.5); LYMPH % 24.4 % (24.0-44.0); MEAN CORPUSCULAR HEMOGLOBIN 28.4 pg (27.0-33.0); MEAN CORPUSCULAR HGB CONC 34.7 g/dl (32.0-36.5); MONO # 0.4 10^3/uL (0.0-0.8); NEUTROPHILS # 2.1 10^3/uL (1.8-7.7); NEUTROPHILS % 62.2 % (36.0-66.0); PLATELET COUNT, AUTOMATED 147 10^3/uL (150-450); RED BLOOD COUNT 4.61 10^6/uL (4.30-6.10); WHITE BLOOD COUNT 3.4 10^3/uL (4.0-10.0)
[2018-12-10 07:05] LABS: BLOOD UREA NITROGEN 8 MG/DL (7-18); CALCIUM LEVEL 7.6 MG/DL (8.8-10.2); CARBON DIOXIDE LEVEL 24 MEQ/L (21-32); CHLORIDE LEVEL 102 MEQ/L (98-107); CREATININE FOR GFR 0.64 MG/DL (0.70-1.30); GLOMERULAR FILTRATION RATE > 60.0 (>35); GLUCOSE, FASTING 76 MG/DL (70-100); POTASSIUM SERUM 3.8 MEQ/L (3.5-5.1); SODIUM LEVEL 133 MEQ/L (136-145)
[2018-12-10] MEDS: ASCORBIC ACID 500 MG TAB PO SCH (09:55)
[2018-12-10] MEDS: ASPIRIN 81 MG ENTERIC TAB PO SCH (09:55)
[2018-12-10] MEDS: OSELTAMIVIR PHOSPHATE 75 MG CAP (TAMIFLU) PO SCH ×2 (09:55→20:28)
[2018-12-10] MEDS: CLOPIDOGREL 75 MG TAB PO SCH (09:56)
[2018-12-10] MEDS: ATORVASTATIN 20 MG TAB PO SCH (09:56)
[2018-12-10] MEDS: CYANOCOBALAMIN 500 MCG TAB PO SCH (09:56)
[2018-12-10 10:00] VITALS: BP 158/73
--- NOTE | 2018-12-10 10:01 | IPNPDOC ---
Subjective Date Seen The patient was seen on 12/10/18. Subjective Chief Complaint/HPI Influenza A Events since last encounter progressing well. developed bleeding with heparin injeciton and significant bruising with injections. Patient requesting we stop Heparin. he is currently on Plavix and aspirin. Constitutional: Reports: Weakness, Fatigue; Denies: Chills, Fever, Night Sweats Pulmonary: Denies: Dyspnea, Cough Cardiovascular: Denies: Chest Pain, Palpitations, Orthopnea, Paroxysmal Noc. Dyspnea, Lt Headedness Psych: Reports: Mood Normal; Denies: Depression, Memory Issues Objective Physical Examination General Exam: Positive: Alert, No Acute Distress Chest Exam: Positive: Clear to auscultation, Normal air movement Heart Exam: Positive: Rate Normal, Regular Rhythm, Normal S1, Normal S2; Negative: Murmurs, Rubs Abdomen Exam: Positive: Normal bowel sounds, Soft; Negative: Tenderness, Hepatospenomegaly Psych Exam: Positive: Mental status NL, Mood NL, Oriented x 3 Assessment /Plan Problems (1) Influenza A Status: Acute Problem Text: showing improvement, yet continues with weakness and lethargy. Will have PT eval for HSE, pending PT eval, consider DC home today/tomorrow. patient agreeable. (2) Dehydration Status: Acute Response to Treatment: Improving Problem Text: tolerating po well. Plan/VTE VTE Prophylaxis Ordered?: Yes (plavix, aspirin) VS, I&O, 24H, Fishbone Vital Signs/I&O Vital Signs Date Time Temp Pulse Resp B/P (MAP) Pulse Ox O2 Delivery O2 Flow Rate FiO2 12/10/18 06:00 98.6 76 19 132/87 (102) 99 12/08/18 23:31 Room Air I&O- Last 24 Hours up to 6 AM 12/10/18 06:00 Intake Total 2270 ml Output Total 3725 ml Balance -1455 ml Laboratory Data 24H LABS Laboratory Tests 2 12/10/18 06:06: Immature Granulocyte % (Auto) 0.6, White Blood Count 3.4L, Red Blood Count 4.61, Hemoglobin 13.1L, Hematocrit 37.8L, Mean Corpuscular Volume 82.0, Mean Corpuscular Hemoglobin 28.4, Mean Corpuscular Hemoglobin Concent 34.7, Red Cell Distribution Width 15.9H, Platelet Count 147L, Neutrophils (%) (Auto) 62.2, Lymphocytes (%) (Auto) 24.4, Monocytes (%) (Auto) 11.0H, Eosinophils (%) (Auto) 1.5, Basophils (%) (Auto) 0.3, Neutrophils # (Auto) 2.1, Lymphocytes # (Auto) 0.8L, Monocytes # (Auto) 0.4, Eosinophils # (Auto) 0.1, Basophils # (Auto) 0.0, Nucleated Red Blood Cells % (auto) 0.0, Anion Gap 7L, Glomerular Filtration Rate > 60.0, Blood Urea Nitrogen 8, Creatinine 0.64L, Sodium Level 133L, Potassium Level 3.8, Chloride Level 102, Carbon Dioxide Level 24, Calcium Level 7.6L CBC/BMP Laboratory Tests 12/10/18 06:06 Red Blood Count 4.61, Mean Corpuscular Volume 82.0, Mean Corpuscular Hemoglobin 28.4, Mean Corpuscular Hemoglobin Concent 34.7, Red Cell Distribution Width 15.9 H, Neutrophils (%) (Auto) 62.2, Lymphocytes (%) (Auto) 24.4, Monocytes (%) (Auto) 11.0 H, Eosinophils (%) (Auto) 1.5, Basophils (%) (Auto) 0.3, Neutrophils # (Auto) 2.1, Lymphocytes # (Auto) 0.8 L, Monocytes # (Auto) 0.4, Eosinophils # (Auto) 0.1, Basophils # (Auto) 0.0, Calcium Level 7.6 L Microbiology Microbiology 12/08/18 Blood Culture - Preliminary, Resulted No growth after 24 hours . All specim... 12/08/18 Blood Culture - Preliminary, Resulted No growth after 24 hours . All specim... Devora Garcia Dec 10, 2018 10:01
[2018-12-10 14:00] VITALS: BP 150/68
[2018-12-10 20:28] VITALS: BP 146/63
[2018-12-10] MEDS: TAMSULOSIN 0.4 MG CAP PO SCH (20:28)
[2018-12-10] MEDS: FINASTERIDE 5 MG TAB PO SCH (20:28)
[2018-12-10] MEDS: LOSARTAN 25 MG TAB PO SCH (20:28)
[2018-12-10] MEDS: ACETAMINOPHEN TAB 650MG DOSE (2X325MG) PO PRN (20:29)
[2018-12-10 22:00] VITALS: BP 146/63
[2018-12-11 02:00] VITALS: BP 142/69
[2018-12-11] MEDS: LEVOTHYROXINE 112MCG TABLET (0.112MG) PO SCH (05:47)
[2018-12-11 05:58] LABS: BASO % 0.3 % (0.0-1.0); EOS # 0.1 10^3/uL (0.0-0.50); EOS % 3.9 % (0.0-3.0); HEMATOCRIT 37.6 % (42.0-52.0); HEMOGLOBIN 12.8 g/dl (13.5-17.5); LYMPH # 0.8 10^3/uL (1.5-4.5); LYMPH % 27.1 % (24.0-44.0); MEAN CORPUSCULAR HEMOGLOBIN 28.6 pg (27.0-33.0); MEAN CORPUSCULAR VOLUME 84.1 fl (80.0-96.0); MONO # 0.3 10^3/uL (0.0-0.8); NEUTROPHILS # 1.8 10^3/uL (1.8-7.7); NEUTROPHILS % 59.4 % (36.0-66.0); PLATELET COUNT, AUTOMATED 145 10^3/uL (150-450); RED BLOOD COUNT 4.47 10^6/uL (4.30-6.10); WHITE BLOOD COUNT 3.1 10^3/uL (4.0-10.0)
[2018-12-11 06:00] VITALS: BP 138/62
[2018-12-11 06:22] LABS: BLOOD UREA NITROGEN 7 MG/DL (7-18); CALCIUM LEVEL 7.9 MG/DL (8.8-10.2); CARBON DIOXIDE LEVEL 28 MEQ/L (21-32); CHLORIDE LEVEL 103 MEQ/L (98-107); CREATININE FOR GFR 0.61 MG/DL (0.70-1.30); GLOMERULAR FILTRATION RATE > 60.0 (>35); GLUCOSE, FASTING 77 MG/DL (70-100); SODIUM LEVEL 137 MEQ/L (136-145)
--- NOTE | 2018-12-11 08:00 | IPNPDOC ---
Subjective Date Seen The patient was seen on 12/11/18. Subjective Chief Complaint/HPI Reports somewhat tight cough and slight DUBOIS, but ambulated well with PT yesterday. appetite "not great" drinking fluids well. Constitutional: Denies: Chills, Fever Pulmonary: Reports: Dyspnea (slight DUBOIS), Cough Cardiovascular: Denies: Chest Pain, Palpitations Gastrointestinal: Denies: Nausea, Vomiting, Abdominal Pain, Diarrhea, Constipation Objective Physical Examination General Exam: Positive: Alert, No Acute Distress (breathing comfortable at rest) Chest Exam: Positive: Clear to auscultation, Normal air movement; Negative: Rales, Rhonchi, Wheezing Heart Exam: Positive: Rate Normal, Regular Rhythm, Normal S1, Normal S2; Negative: Murmurs, Rubs Abdomen Exam: Positive: Normal bowel sounds, Soft; Negative: Tenderness, Hepatospenomegaly Extremity Exam: Negative: Edema Psych Exam: Positive: Mental status NL, Mood NL, Oriented x 3 Assessment /Plan Problems (1) Influenza A Status: Acute Response to Treatment: Improving Problem Text: 12/11/18 - Tamiflu D#4 Gradually improving. Ambulated well with PT yesterday. PT will come back and work with him today on stairs. Son at bedside reports that patient's is home with flu now too and very sick in bed. They will talk to social media coordinator today about potential services in the home. D/C home today if safe per PT with services if possible per PFS (2) Dehydration Status: Resolved Response to Treatment: Improving Problem Text: tolerating po well. (3) Hyponatremia Status: Resolved Problem Text: was secondary to dehydration. Resolved with IVF (4) HTN (hypertension) Status: Chronic Response to Treatment: Stable Problem Text: stable on Cozaar (5) BPH (benign prostatic hyperplasia) Status: Chronic Response to Treatment: Stable Problem Text: stable on Proscar and FLomax (6) CAD (coronary artery disease) Status: Chronic Response to Treatment: Stable Problem Text: ASA/Plavix/Statin/ARB Plan/VTE VTE Prophylaxis Ordered?: Yes (plavix, aspirin) Plan Therapy: PT Disposition D/C home today or tomorrow pending PT and PFS as above VS, I&O, 24H, Fishbone Vital Signs/I&O Vital Signs Date Time Temp Pulse Resp B/P (MAP) Pulse Ox O2 Delivery O2 Flow Rate FiO2 12/11/18 06:00 97.9 67 20 138/62 (87) 99 12/08/18 23:31 Room Air I&O- Last 24 Hours up to 6 AM 12/11/18 06:00 Intake Total 1800 ml Output Total 2150 ml Balance -350 ml Laboratory Data 24H LABS Laboratory Tests 2 12/11/18 05:32: Immature Granulocyte % (Auto) 0.3, White Blood Count 3.1L, Red Blood Count 4.47, Hemoglobin 12.8L, Hematocrit 37.6L, Mean Corpuscular Volume 84.1, Mean Corpuscular Hemoglobin 28.6, Mean Corpuscular Hemoglobin Concent 34.0, Red Cell Distribution Width 16.0H, Platelet Count 145L, Neutrophils (%) (Auto) 59.4, Lymphocytes (%) (Auto) 27.1, Monocytes (%) (Auto) 9.0H, Eosinophils (%) (Auto) 3.9H, Basophils (%) (Auto) 0.3, Neutrophils # (Auto) 1.8, Lymphocytes # (Auto) 0.8L, Monocytes # (Auto) 0.3, Eosinophils # (Auto) 0.1, Basophils # (Auto) 0.0, Nucleated Red Blood Cells % (auto) 0.0, Anion Gap 6L, Glomerular Filtration Rate > 60.0, Blood Urea Nitrogen 7, Creatinine 0.61L, Sodium Level 137, Potassium Level 4.0, Chloride Level 103, Carbon Dioxide Level 28, Calcium Level 7.9L CBC/BMP Laboratory Tests 12/11/18 05:32 Red Blood Count 4.47, Mean Corpuscular Volume 84.1, Mean Corpuscular Hemoglobin 28.6, Mean Corpuscular Hemoglobin Concent 34.0, Red Cell Distribution Width 16.0 H, Neutrophils (%) (Auto) 59.4, Lymphocytes (%) (Auto) 27.1, Monocytes (%) (Auto) 9.0 H, Eosinophils (%) (Auto) 3.9 H, Basophils (%) (Auto) 0.3, Neutrophils # (Auto) 1.8, Lymphocytes # (Auto) 0.8 L, Monocytes # (Auto) 0.3, Eosinophils # (Auto) 0.1, Basophils # (Auto) 0.0, Calcium Level 7.9 L Microbiology Microbiology 12/08/18 Blood Culture - Preliminary, Resulted No Growth after 48 hours. All Specime... 12/08/18 Blood Culture - Preliminary, Resulted No Growth after 48 hours. All Specime... YUMIKO KAHN PA-C Dec 11, 2018 08:00
[2018-12-11] MEDS: ASPIRIN 81 MG ENTERIC TAB PO SCH (08:45)
[2018-12-11] MEDS: OSELTAMIVIR PHOSPHATE 75 MG CAP (TAMIFLU) PO SCH (08:45)
[2018-12-11] MEDS: ATORVASTATIN 20 MG TAB PO SCH (08:45)
[2018-12-11] MEDS: ASCORBIC ACID 500 MG TAB PO SCH (08:45)
[2018-12-11] MEDS: CYANOCOBALAMIN 500 MCG TAB PO SCH (08:45)
[2018-12-11] MEDS: CLOPIDOGREL 75 MG TAB PO SCH (08:45)
[2018-12-11] MEDS: ACETAMINOPHEN TAB 650MG DOSE (2X325MG) PO PRN (08:47)
[2018-12-11] MEDS ORDERED: OSEL75CA2 PO (08:55)
== END 2018-12-11 14:30 | disposition home health service (06) | DRG 194 ==
LOC: M ED 17:44 → M ED INP 22:37 → M MS5PR 12-09 00:15
PROVIDERS: ADMIT Family Medicine; ATTEND Family Medicine
DX: J10.1 Influenza due to other identified influenza virus with other respiratory manifestations (principal); E87.1 Hypo-osmolality and hyponatremia; E86.0 Dehydration; E03.9 Hypothyroidism, unspecified; I25.10 Atherosclerotic heart disease of native coronary artery without angina pectoris; N40.0 Benign prostatic hyperplasia without lower urinary tract symptoms; M19.90 Unspecified osteoarthritis, unspecified site; I35.0 Nonrheumatic aortic (valve) stenosis; Z98.2 Presence of cerebrospinal fluid drainage device; Z79.899 Other long term (current) drug therapy; Z79.82 Long term (current) use of aspirin

== ENCOUNTER → 2018-12-17 | Outpatient (REF) | payer MEDICARE, OTHER ==
[~2018-12-17] MED LIST changes: +ATOR40TA75 PO; +CLOP75TA2 PO; +FINA5TAB2 PO; +OSEL75CA2 PO; +VITA10002 PO
[2018-12-17 13:13] LABS: BASO % 0.4 % (0.0-1.0); EOS # 0.1 10^3/uL (0.0-0.50); EOS % 1.2 % (0.0-3.0); HEMOGLOBIN 13.7 g/dl (13.5-17.5); LYMPH # 0.8 10^3/uL (1.5-4.5); MEAN CORPUSCULAR HEMOGLOBIN 28.5 pg (27.0-33.0); MEAN CORPUSCULAR HGB CONC 34.3 g/dl (32.0-36.5); MEAN CORPUSCULAR VOLUME 83.2 fl (80.0-96.0); MONO # 0.9 10^3/uL (0.0-0.8); NEUTROPHILS # 6.7 10^3/uL (1.8-7.7); NEUTROPHILS % 78.6 % (36.0-66.0); PLATELET COUNT, AUTOMATED 280 10^3/uL (150-450); RED BLOOD COUNT 4.81 10^6/uL (4.30-6.10); WHITE BLOOD COUNT 8.5 10^3/uL (4.0-10.0)
[2018-12-17 13:49] LABS: ALBUMIN 3.1 GM/DL (3.2-5.2); ALT/SGPT 33 U/L (12-78); BILIRUBIN,TOTAL 0.7 MG/DL (0.2-1.0); BLOOD UREA NITROGEN 12 MG/DL (7-18); CALCIUM LEVEL 8.7 MG/DL (8.8-10.2); CARBON DIOXIDE LEVEL 25 MEQ/L (21-32); CHLORIDE LEVEL 100 MEQ/L (98-107); CREATININE FOR GFR 0.66 MG/DL (0.70-1.30); GLOMERULAR FILTRATION RATE > 60.0 (>35); GLUCOSE, FASTING 99 MG/DL (70-100); POTASSIUM SERUM 4.4 MEQ/L (3.5-5.1); SODIUM LEVEL 135 MEQ/L (136-145); TOTAL PROTEIN 5.6 GM/DL (6.4-8.2)
== END ==
LOC: M SFHCPLAZ 10:41
PROVIDERS: ATTEND Physician Assistant Medical
DX: E87.1 Hypo-osmolality and hyponatremia (principal); R06.02 Shortness of breath
CPT/HCPCS: 80053; 85025; 99496; G0463

== ENCOUNTER → 2018-12-18 | Outpatient (CLI) | payer MEDICARE, OTHER ==
--- NOTE | 2018-12-18 18:50 | REP ---
CHEST, TWO VIEWS: Two views of the chest are performed and compared to prior study of 12/08/2018 and 10/23/2018. Biapical pleural thickening is stable. There is bibasilar interstitial fibrosis which is unchanged. There is a calcified granuloma in the right lung base. There is mild cardiomegaly. There is calcification and tortuosity of the thoracic aorta. Mediastinal silhouette is unchanged. Multiple sternal wires and mediastinal clips are present as well as evidence of aortic valve repair. There is osteopenia with mild degenerative changes of the spine. IMPRESSION: Chronic changes are stable. Mild cardiomegaly. No acute infiltrate. Electronically Signed by Sanchez Small MD 12/21/2018 12:23 P
== END ==
LOC: M WUC 16:23
PROVIDERS: ATTEND Physician Assistant Medical
DX: R06.02 Shortness of breath (principal); I51.7 Cardiomegaly

== ENCOUNTER 2018-12-27 18:24 | Emergency (ER) | payer MEDICARE, OTHER ==
[~2018-12-27] VITALS: Ht 177.8 cm; Wt 74.1 kg
[2018-12-27] MEDS ORDERED: ONDANSETRON 4MG/2ML VIAL (J2405) IV ONE (19:15)
[2018-12-27] MEDS ORDERED: NS 500 ML IV ONE (19:15)
[2018-12-27 20:02] LABS: BASO % 0.1 % (0.0-1.0); HEMATOCRIT 41.9 % (42.0-52.0); HEMOGLOBIN 13.7 g/dl (13.5-17.5); LYMPH % 2.6 % (24.0-44.0); MEAN CORPUSCULAR HGB CONC 32.7 g/dl (32.0-36.5); MEAN CORPUSCULAR VOLUME 85.7 fl (80.0-96.0); MONO # 0.4 10^3/uL (0.0-0.8); MONO % 4.1 % (0.0-5.0); NEUTROPHILS # 8.1 10^3/uL (1.8-7.7); NEUTROPHILS % 92.6 % (36.0-66.0); PLATELET COUNT, AUTOMATED 240 10^3/uL (150-450); RED BLOOD COUNT 4.89 10^6/uL (4.30-6.10); WHITE BLOOD COUNT 8.7 10^3/uL (4.0-10.0)
[2018-12-27 20:18] LABS: LYMPH # 0.2 10^3/uL (1.5-4.5)
[2018-12-27 20:32] LABS: ALBUMIN 3.1 GM/DL (3.2-5.2); ALT/SGPT 28 U/L (12-78); BILIRUBIN,DIRECT 0.3 MG/DL (0.0-0.2); BILIRUBIN,TOTAL 0.9 MG/DL (0.2-1.0); BLOOD UREA NITROGEN 19 MG/DL (7-18); CALCIUM LEVEL 8.2 MG/DL (8.8-10.2); CARBON DIOXIDE LEVEL 29 MEQ/L (21-32); CHLORIDE LEVEL 103 MEQ/L (98-107); CPK CREATINE PHOSPHOKINASE 48 U/L (39-308); CREATININE FOR GFR 0.84 MG/DL (0.70-1.30); GLOMERULAR FILTRATION RATE > 60.0 (>35); GLUCOSE, FASTING 100 MG/DL (70-100); LIPASE 111 U/L (73-393); MB/CK RELATIVE INDEX 3.75 (< OR =4); POTASSIUM SERUM 4.3 MEQ/L (3.5-5.1); SODIUM LEVEL 136 MEQ/L (136-145); TOTAL PROTEIN 5.6 GM/DL (6.4-8.2); TROPONIN I < 0.02 NG/ML (< 0.10)
[2018-12-27] MEDS ORDERED: ACETAMINOPHEN 325 MG TAB PO ONE (21:30)
[2018-12-27 22:47] VITALS: BP 108/56
--- NOTE | 2018-12-28 06:10 | ECGEPIP ---
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
== END 2018-12-27 22:54 | disposition home or self-care (01) ==
LOC: M ED 18:24 → EDBD 18:24 → M ED 22:54
DX: A08.4 Viral intestinal infection, unspecified (principal); I11.0 Hypertensive heart disease with heart failure; I50.9 Heart failure, unspecified; E03.9 Hypothyroidism, unspecified; E78.5 Hyperlipidemia, unspecified; I25.10 Atherosclerotic heart disease of native coronary artery without angina pectoris; Z79.899 Other long term (current) drug therapy; Z79.890 Hormone replacement therapy; Z79.82 Long term (current) use of aspirin; Z88.2 Allergy status to sulfonamides; Z88.8 Allergy status to other drugs, medicaments and biological substances
CPT/HCPCS: 36415; 80048; 80076; 81001; 82550; 82553; 83690; 84484; 85025; 93005; 93041; 96374; 99285; J2405

== ENCOUNTER → 2019-02-26 | Outpatient (CLI) | payer MEDICARE, OTHER ==
[~2019-02-26] MED LIST changes: -ASPI1TAB PO; +ASPI81TA26 PO
[2019-02-26 12:50] LABS: BASO % 0.5 % (0.0-1.0); EOS # 0.2 10^3/uL (0.0-0.50); EOS % 3.2 % (0.0-3.0); HEMATOCRIT 44.1 % (42.0-52.0); HEMOGLOBIN 14.6 g/dl (13.5-17.5); LYMPH % 18.2 % (24.0-44.0); MEAN CORPUSCULAR HEMOGLOBIN 29.9 pg (27.0-33.0); MEAN CORPUSCULAR HGB CONC 33.1 g/dl (32.0-36.5); MEAN CORPUSCULAR VOLUME 90.2 fl (80.0-96.0); MONO # 0.5 10^3/uL (0.0-0.8); MONO % 9.1 % (0.0-5.0); NEUTROPHILS # 3.9 10^3/uL (1.8-7.7); NEUTROPHILS % 68.6 % (36.0-66.0); PLATELET COUNT, AUTOMATED 205 10^3/uL (150-450); RED BLOOD COUNT 4.89 10^6/uL (4.30-6.10); WHITE BLOOD COUNT 5.6 10^3/uL (4.0-10.0)
[2019-02-26 13:48] LABS: ALBUMIN 3.1 GM/DL (3.2-5.2); ALT/SGPT 28 U/L (12-78); BILIRUBIN,TOTAL 0.8 MG/DL (0.2-1.0); BLOOD UREA NITROGEN 19 MG/DL (7-18); CALCIUM LEVEL 8.8 MG/DL (8.8-10.2); CARBON DIOXIDE LEVEL 29 MEQ/L (21-32); CHLORIDE LEVEL 102 MEQ/L (98-107); CHOLESTEROL LEVEL 112 MG/DL (<200); CHOLESTEROL RISK RATIO 1.534 (<5); CREATININE FOR GFR 0.84 MG/DL (0.70-1.30); FREE T4 1.32 NG/DL (0.76-1.46); GLOMERULAR FILTRATION RATE > 60.0 (>35); GLUCOSE, FASTING 81 MG/DL (70-100); HDL CHOLESTEROL 73 MG/DL (>40); LDL CHOLESTEROL 31 MG/DL (<100); NON-HDL-C 39 MG/DL; POTASSIUM SERUM 4.6 MEQ/L (3.5-5.1); PTH INTACT 53.2 PG/ML (18.5-88.0); SODIUM LEVEL 136 MEQ/L (136-145); TOTAL 25(OH) VITAMIN D 20.9 NG/ML (30.0-100.0); TRIGLYCERIDES LEVEL 41 MG/DL (<150); VITAMIN B12 LEVEL 678 PG/ML (247-911)
[2019-02-26 13:55] LABS: HEMOGLOBIN A1c 5.8 %
== END ==
LOC: M WUC 08:25
PROVIDERS: ATTEND Family Medicine
DX: E03.9 Hypothyroidism, unspecified (principal); E78.2 Mixed hyperlipidemia; R73.01 Impaired fasting glucose; E55.9 Vitamin D deficiency, unspecified; I12.9 Hypertensive chronic kidney disease with stage 1 through stage 4 chronic kidney disease, or unspecified chronic kidney disease

== ENCOUNTER → 2019-07-22 | Outpatient (CLI) | payer MEDICARE, OTHER ==
[~2019-07-22] MED LIST changes: -CODCAP4 PO; +CODCAP5 PO; +CYAN100049 PO; -VITA10002 PO
[2019-07-22 09:41] LABS: ALBUMIN 3.5 GM/DL (3.2-5.2); ALT/SGPT 26 U/L (12-78); BILIRUBIN,TOTAL 0.9 MG/DL (0.2-1.0); BLOOD UREA NITROGEN 18 MG/DL (7-18); C REACTIVE PROTEIN QUANTITATIV 0.43 MG/DL (0.00-0.30); CALCIUM LEVEL 9.6 MG/DL (8.8-10.2); CARBON DIOXIDE LEVEL 31 MEQ/L (21-32); CHLORIDE LEVEL 102 MEQ/L (98-107); CPK CREATINE PHOSPHOKINASE 88 U/L (39-308); CREATININE FOR GFR 1.05 MG/DL (0.70-1.30); GLOMERULAR FILTRATION RATE > 60.0 (>35); GLUCOSE, FASTING 92 MG/DL (70-100); POTASSIUM SERUM 4.8 MEQ/L (3.5-5.1); SODIUM LEVEL 137 MEQ/L (136-145); TOTAL PROTEIN 6.3 GM/DL (6.4-8.2)
[2019-07-22 10:37] LABS: HEMOGLOBIN A1c 5.7 %
== END ==
LOC: M WUC 08:09
PROVIDERS: ATTEND Family Medicine
DX: N40.1 Benign prostatic hyperplasia with lower urinary tract symptoms (principal); R73.01 Impaired fasting glucose; E78.2 Mixed hyperlipidemia; Z79.01 Long term (current) use of anticoagulants
CPT/HCPCS: 36415; 80053; 82550; 83036; 86140; G0103

== ENCOUNTER → 2019-08-20 | Outpatient (CLI) | payer MEDICARE, OTHER ==
--- NOTE | 2019-08-20 17:31 | REP ---
COOKIE SWALLOW The procedure was performed under the direct supervision of Dr. Dumont. The procedure was performed with the Shannan Mirza from speech pathology present. 5 ml aliquots of thin, pudding, mixed fruit, soft and solid consistency barium was administered. There is no evidence of penetration or aspiration. The detailed report of this examination will be provided by speech pathology. 1.9 minutes of fluoroscopy time was utilized for this procedure. Electronically Signed by MAT Sweeney 08/20/2019 04:34 P Electronically Signed by Oneil Dumont MD 08/20/2019 05:22 P
== END ==
LOC: M ST 11:08
PROVIDERS: ATTEND Family Medicine
DX: R13.12 Dysphagia, oropharyngeal phase (principal)

== ENCOUNTER 2019-09-06 11:29 | Outpatient (RCR) | payer MEDICARE, OTHER | END 2019-09-11 | LOC: M ST 11:29 | PROVIDERS: ATTEND Family Medicine | DX: Z51.89 Encounter for other specified aftercare (principal); R13.13 Dysphagia, pharyngeal phase ==

== ENCOUNTER 2019-09-14 11:49 | Outpatient (RCR) | payer MEDICARE, OTHER | END 2019-10-12 | LOC: M ST 11:49 | PROVIDERS: ATTEND Family Medicine | DX: R13.13 Dysphagia, pharyngeal phase (principal) ==

== ENCOUNTER → 2019-12-21 | Outpatient (CLI) | payer MEDICARE, OTHER ==
--- NOTE | 2019-12-21 12:55 | REP ---
Pelvis left hip: Three views. History: Acute pain. Findings: AP view of the pelvis and AP and frog-leg views of the left hip are compared with prior study from February 06, 2015. Femoral head is smooth and rounded and hip joint spaces preserved. There is mild femoral acetabular spurring. Radiographically this is unchanged. There is some vascular calcification. Bowel gas pattern is normal. Right hip osteoarthritic changes are seen as well. Impression: Mild osteoarthritis. No acute bony abnormality. Electronically Signed by Oneil Dumont MD 12/21/2019 12:47 P
--- NOTE | 2019-12-21 12:55 | REP ---
CT of the brain without IV contrast: Comparison is 03/18/2018. There is no subdural or epidural hematoma. There is no intraparenchymal or subarachnoid hemorrhage. There is no edema, mass effect or midline shift. The ventricles and sulci are dilated as previously compatible with diffuse chronic volume loss. There are lucencies in the subcortical white matter, unchanged, compatible with chronic microvascular ischemia. Impression: No acute hemorrhage, subdural, mass effect or shift. There are findings compatible with chronic volume loss and chronic microvascular ischemia, unchanged from the prior study. Electronically Signed by Sanchez Felton MD 12/21/2019 12:48 P
--- NOTE | 2019-12-21 12:59 | REP ---
CT study of the cervical spine without contrast: History: Acute post traumatic headache. No comparison CT study. Technique: Helical scanning is acquired and overlapping 2 mm high resolution axial images were generated and reviewed at bone and soft tissue window settings. Coronal and sagittal multiplanar re-formations images are generated. CT findings: There is no evidence of cervical spine element fracture. No skull base fracture is seen. Cervical vertebral body heights are preserved. Alignment is normal. Facet joints are normally aligned bilaterally at each cervical level on multiplanar re-formations images. There is no evidence of intraspinal or paraspinal hematoma. No extra vertebral abnormality is seen. There is moderate diffuse degenerative disc disease and osteoarthritic facet disease in the cervical spine. There is diffuse posterior disc bulging and disc calcification at C4-5 with moderate central canal stenosis evident and bilateral foraminal narrowing. Similar changes are noted at C5-6 and to a lesser extent at C6-7. Right posterior disc bulging and calcification and spurring seen at C7-T1. Multilevel neural foraminal narrowing is observed. Vascular calcification is apparent. There is fairly prominent right apical pleuroparenchymal fibrosis unchanged from the [address] Impression: Moderate degenerative spondylosis changes. Multilevel central canal stenosis and bilateral neural foraminal narrowing. Otherwise negative CT study of the cervical spine without contrast. No fracture seen. Electronically Signed by Oneil Dumont MD 12/21/2019 03:44 P
== END ==
LOC: M RAD 12:02
PROVIDERS: ATTEND Physician Assistant
DX: M16.0 Bilateral primary osteoarthritis of hip (principal); M99.51 Intervertebral disc stenosis of neural canal of cervical region; G44.319 Acute post-traumatic headache, not intractable; M25.552 Pain in left hip
CPT/HCPCS: 70450; 72125; 72190; 73502; G0463

== ENCOUNTER → 2020-02-02 | Outpatient (REF) | payer MEDICARE, OTHER ==
[2020-02-02 17:01] LABS: BASO % 0.5 % (0.0-1.0); EOS # 0.2 10^3/uL (0.0-0.5); EOS % 2.4 % (0.0-3.0); HEMATOCRIT 43.4 % (42.0-52.0); HEMOGLOBIN 14.5 g/dl (13.5-17.5); LYMPH # 0.9 10^3/uL (1.5-5.0); LYMPH % 13.8 % (24.0-44.0); MEAN CORPUSCULAR HEMOGLOBIN 29.4 pg (27.0-33.0); MEAN CORPUSCULAR HGB CONC 33.4 g/dl (32.0-36.5); MONO # 0.8 10^3/uL (0.0-0.8); MONO % 11.5 % (0.0-5.0); NEUTROPHILS # 4.7 10^3/uL (1.5-8.5); NEUTROPHILS % 71.3 % (36.0-66.0); PLATELET COUNT, AUTOMATED 234 10^3/uL (150-450); RED BLOOD COUNT 4.93 10^6/uL (4.30-6.10); WHITE BLOOD COUNT 6.5 10^3/uL (4.0-10.0)
[2020-02-02 17:08] LABS: ALBUMIN 3.2 GM/DL (3.2-5.2); ALT/SGPT 20 U/L (12-78); BILIRUBIN,TOTAL 0.5 MG/DL (0.2-1.0); BLOOD UREA NITROGEN 17 MG/DL (7-18); C REACTIVE PROTEIN QUANTITATIV 1.93 MG/DL (0.00-0.30); CALCIUM LEVEL 9.2 MG/DL (8.8-10.2); CARBON DIOXIDE LEVEL 31 MEQ/L (21-32); CHLORIDE LEVEL 94 MEQ/L (98-107); CREATININE FOR GFR 0.89 MG/DL (0.70-1.30); GLOMERULAR FILTRATION RATE > 60.0 (>35); GLUCOSE, FASTING 116 MG/DL (70-100); NT-PRO BNP 440 PG/ML (<450); POTASSIUM SERUM 4.6 MEQ/L (3.5-5.1); SODIUM LEVEL 130 MEQ/L (136-145)
== END ==
LOC: M SFHCPLAZ 14:43
PROVIDERS: ATTEND Physician Assistant Medical
DX: I50.32 Chronic diastolic (congestive) heart failure (principal); R50.9 Fever, unspecified; Z11.59 Encounter for screening for other viral diseases
CPT/HCPCS: 36415; 80053; 83880; 85025; 86140; 87502; U0002

== ENCOUNTER 2020-02-14 14:50 | Emergency (ER) | payer MEDICARE, OTHER ==
[~2020-02-14] VITALS: Ht 175.3 cm; Wt 70.5 kg
[2020-02-14] MEDS ORDERED: NS 1,000 ML IV SCH (15:15)
[2020-02-14 15:23] LABS: BASO % 0.4 % (0.0-1.0); EOS # 0.3 10^3/uL (0.0-0.5); EOS % 4.4 % (0.0-3.0); HEMATOCRIT 43.1 % (42.0-52.0); HEMOGLOBIN 14.4 g/dl (13.5-17.5); LYMPH # 0.7 10^3/uL (1.5-5.0); LYMPH % 10.5 % (24.0-44.0); MEAN CORPUSCULAR HGB CONC 33.4 g/dl (32.0-36.5); MEAN CORPUSCULAR VOLUME 86.7 fl (80.0-96.0); MONO # 0.7 10^3/uL (0.0-0.8); MONO % 10.3 % (0.0-5.0); NEUTROPHILS # 5.1 10^3/uL (1.5-8.5); NEUTROPHILS % 73.7 % (36.0-66.0); PLATELET COUNT, AUTOMATED 280 10^3/uL (150-450); RED BLOOD COUNT 4.97 10^6/uL (4.30-6.10); WHITE BLOOD COUNT 6.9 10^3/uL (4.0-10.0)
[2020-02-14] MEDS ORDERED: TROS20TA3 (15:26)
[2020-02-14] MEDS ORDERED: FINA5TAB2 (15:26)
[2020-02-14] MEDS ORDERED: CYAN100050 (15:26)
[2020-02-14 15:36] LABS: INR 1.08; PROTHROMBIN TIME 13.7 SECONDS (11.8-14.0)
--- NOTE | 2020-02-14 15:43 | REP ---
PORTABLE CHEST X-RAY: Single view. HISTORY: Chest pain. Comparison chest x-ray December 18, 2018 and December 08, 2018. A remote prior study from June 15, 2014 is also reviewed. FINDINGS: Heart is enlarged. The patient is status post aortic valve replacement. Median sternotomy wires are seen. Mediastinal clips are noted. Bibasilar interstitial fibrosis pattern is seen in the lung fox. There is pleural thickening at the right lung apex unchanged at 2014 prior study. The lungs are somewhat under aerated compared to prior study. No pleural effusion is seen. No definite acute infiltrate. IMPRESSION: Lesser level of inspiration. Chronic bibasilar and right apical changes. Status post aortic valve replacement. Cardiomegaly unchanged. Electronically Signed by Oneil Dumont MD 02/14/2020 04:40 P
[2020-02-14 15:50] LABS: ALBUMIN 2.8 GM/DL (3.2-5.2); ALT/SGPT 17 U/L (12-78); BILIRUBIN,DIRECT 0.2 MG/DL (0.0-0.2); BILIRUBIN,TOTAL 0.6 MG/DL (0.2-1.0); BLOOD UREA NITROGEN 18 MG/DL (7-18); CALCIUM LEVEL 9.3 MG/DL (8.8-10.2); CARBON DIOXIDE LEVEL 30 MEQ/L (21-32); CHLORIDE LEVEL 97 MEQ/L (98-107); CK-MB VALUE MASS 2.3 NG/ML (<3.6); CPK CREATINE PHOSPHOKINASE 53 U/L (39-308); CREATININE FOR GFR 0.87 MG/DL (0.70-1.30); GLOMERULAR FILTRATION RATE > 60.0 (>35); GLUCOSE, FASTING 96 MG/DL (70-100); LIPASE 91 U/L (73-393); MB/CK RELATIVE INDEX 4.34 (< OR =4); POTASSIUM SERUM 4.7 MEQ/L (3.5-5.1); SODIUM LEVEL 132 MEQ/L (136-145); TOTAL PROTEIN 6.4 GM/DL (6.4-8.2); TROPONIN I < 0.02 NG/ML (< 0.10)
--- NOTE | 2020-02-14 18:42 | ECGEPIP ---
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
[2020-02-14 20:46] LABS: CK-MB VALUE MASS 1.3 NG/ML (<3.6); CPK CREATINE PHOSPHOKINASE 43 U/L (39-308); MB/CK RELATIVE INDEX 3.02 (< OR =4); TROPONIN I < 0.02 NG/ML (< 0.10)
[2020-02-14 21:28] VITALS: BP 197/85
[2020-02-14] MEDS ORDERED: LABETALOL 100MG/20ML VIAL IV STA (21:43)
[2020-02-14 21:53] VITALS: BP 176/85
--- NOTE | 2020-02-16 08:48 | ECGEPIP ---
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
== END 2020-02-14 22:42 | disposition home or self-care (01) ==
LOC: M ED 14:50
DX: I20.8 Other forms of angina pectoris (principal); R06.02 Shortness of breath; I11.9 Hypertensive heart disease without heart failure; E78.5 Hyperlipidemia, unspecified; E07.9 Disorder of thyroid, unspecified; Z95.1 Presence of aortocoronary bypass graft; Z95.4 Presence of other heart-valve replacement; Z79.899 Other long term (current) drug therapy; Z79.82 Long term (current) use of aspirin; Z79.02 Long term (current) use of antithrombotics/antiplatelets

== ENCOUNTER → 2020-02-28 | Outpatient (REF) | payer MEDICARE, OTHER ==
[~2020-02-28] MED LIST changes: +CYAN100050; +FINA5TAB2; +TROS20TA3
[2020-02-28 18:39] LABS: C REACTIVE PROTEIN QUANTITATIV 1.85 MG/DL (0.00-0.30); CPK CREATINE PHOSPHOKINASE 56 U/L (39-308); FREE T4 1.53 NG/DL (0.76-1.46); MAGNESIUM LEVEL 2.5 MG/DL (1.8-2.4); NT-PRO BNP 273 PG/ML (<450); RHEUMATOID FACTOR QUANT < 10.0 IU/ML (<15.0); TOTAL PROTEIN 6.7 GM/DL (6.4-8.2)
[2020-02-28 18:40] LABS: VITAMIN B12 LEVEL 1526 PG/ML (247-911)
[2020-02-28 18:46] LABS: HEMOGLOBIN A1c 6.4 %
[2020-02-29 11:47] LABS: ALBUMIN 3.58 GM/DL (3.29-5.55); ALBUMIN % 53.5 % (55.8-66.1); ALPHA-1-GLOBULIN % 7.3 % (2.9-4.9); ALPHA-1-GLOBULINS 0.49 GM/DL (0.17-0.41); ALPHA-2-GLOBULINS 0.98 GM/DL (0.42-0.99); ALPHA-2-GLOBULINS % 14.7 % (7.1-11.8); BETA-1-GLOBULINS 0.42 GM/DL (0.28-0.60); BETA-1-GLOBULINS % 6.2 % (4.7-7.2); BETA-2-GLOBULINS 0.41 GM/DL (0.19-0.55); BETA-2-GLOBULINS % 6.1 % (3.2-6.5); GAMMA GLOBULIN % 12.2 % (11.1-18.8); GAMMA GLOBULINS 0.82 GM/DL (0.65-1.58)
[2020-03-02 06:42] LABS: ANA (HEP2) Positive (.); CYCLIC CITRULLINATED PEPTIDE 9 units (0-19); Lyme Disease IgG/IgM Antibodie <0.91 ISR (0.00-0.90); Lyme Disease IgM Ab Quantitati <0.80 index (0.00-0.79)
== END ==
LOC: M SFHCPLAZ 14:59
PROVIDERS: ATTEND Family Medicine
DX: E03.9 Hypothyroidism, unspecified (principal); E53.8 Deficiency of other specified B group vitamins; I50.32 Chronic diastolic (congestive) heart failure; R53.83 Other fatigue; R73.01 Impaired fasting glucose
CPT/HCPCS: 36415; 82550; 82607; 83036; 83735; 83880; 84165; 84439; 84443; 85652; 86038; 86140; 86200; 86431; 86617; G0463

== ENCOUNTER 2020-03-04 05:46 | Emergency (ER) | payer MEDICARE, OTHER ==
[~2020-03-04] VITALS: Ht 177.8 cm; Wt 69.5 kg
[2020-03-04] MEDS ORDERED: NS 500 ML IV ONE (06:30)
[2020-03-04 06:53] LABS: BASO % 0.5 % (0.0-1.0); EOS # 0.1 10^3/uL (0.0-0.5); EOS % 1.4 % (0.0-3.0); HEMATOCRIT 39.4 % (42.0-52.0); LYMPH # 0.6 10^3/uL (1.5-5.0); LYMPH % 6.9 % (24.0-44.0); MEAN CORPUSCULAR HEMOGLOBIN 28.1 pg (27.0-33.0); MEAN CORPUSCULAR VOLUME 85.1 fl (80.0-96.0); MONO # 0.6 10^3/uL (0.0-0.8); NEUTROPHILS # 7.3 10^3/uL (1.5-8.5); NEUTROPHILS % 83.5 % (36.0-66.0); PLATELET COUNT, AUTOMATED 264 10^3/uL (150-450); RED BLOOD COUNT 4.63 10^6/uL (4.30-6.10); WHITE BLOOD COUNT 8.7 10^3/uL (4.0-10.0)
[2020-03-04 07:15] LABS: ALBUMIN 2.5 GM/DL (3.2-5.2); ALT/SGPT 17 U/L (12-78); BILIRUBIN,DIRECT 0.1 MG/DL (0.0-0.2); BILIRUBIN,TOTAL 0.3 MG/DL (0.2-1.0); BLOOD UREA NITROGEN 20 MG/DL (7-18); CALCIUM LEVEL 8.8 MG/DL (8.8-10.2); CARBON DIOXIDE LEVEL 29 MEQ/L (21-32); CHLORIDE LEVEL 98 MEQ/L (98-107); CREATININE FOR GFR 0.93 MG/DL (0.70-1.30); GLOMERULAR FILTRATION RATE > 60.0 (>35); GLUCOSE, FASTING 157 MG/DL (70-100); LIPASE 177 U/L (73-393); POTASSIUM SERUM 4.6 MEQ/L (3.5-5.1); SODIUM LEVEL 134 MEQ/L (136-145); TOTAL PROTEIN 5.4 GM/DL (6.4-8.2)
[2020-03-04] MEDS ORDERED: ISOVUE-370 76% 100ML VIAL As Ordered ONE (07:35)
[2020-03-04] MEDS ORDERED: cefTRIAXone SOD 1 GM in D5W MINI-BAG PLUS 50 ML IV ONE (08:30)
[2020-03-04] MEDS ORDERED: MACR100C43 PO (08:46)
[2020-03-04] MEDS ORDERED: PYRI1TAB5 PO (09:00)
[2020-03-04 10:08] VITALS: BP 144/67
--- NOTE | 2020-03-07 08:36 | REP ---
REASON FOR EXAM: Hematuria. COMPARISON: 02/28/2017, the latest prior. CONTRAST: 100 mL Isovue 370. Preliminary report was given by Dr. Benitez. There is no change in the lung bases. There are chronic basilar change right greater than left status quo. The liver, gallbladder, spleen, pancreas, adrenal glands, and kidneys are unchanged. Chronic splenic and hepatic calcific granulomatous changes status quo. Mild unchanged bilateral low density adrenal gland thickening status quo. Bilateral renal cysts unchanged. The abdominal aorta and paraaortic regions are unchanged. Calcific atherosclerotic change status quo. No significant change in the appearance of the bowel loops or their mesenteries. There is no intra-abdominal mass or adenopathy. There is no free fluid or free air. CT PELVIS: There is prostatomegaly, status quo with corpora amylacea. There is thickening of the urinary bladder wall with perivesicular fatty infiltration. There is no free fluid or free air. There is no change in the osseous structures. IMPRESSION: 1. Changes involving the urinary bladder as described above. Acute cystitis versus chronic change. Correlate clinically. 2. Prostatomegaly status quo. 3. Stable renal cysts. 4. Chronic lung base changes status quo. 5. Colonic diverticulosis. 6. Previously present left inguinal hernia has reduced, however a loop of small bowel abuts against the left inguinal ring. 7. Chronic osseous changes status quo. 8. Other findings as described above. Electronically Signed by Aaron Shah DO 03/07/2020 09:39 A
== END 2020-03-04 10:19 | disposition home or self-care (01) ==
LOC: M ED 05:46
DX: N30.01 Acute cystitis with hematuria (principal)
CPT/HCPCS: 74177; 80048; 80076; 81001; 83690; 85025; 87088; 87186; 96361; 96365; 99284; J0696; Q9967

== ENCOUNTER → 2020-03-17 | Outpatient (REF) | payer MEDICARE, OTHER ==
[~2020-03-17] MED LIST changes: +MACR100C43 PO; +PYRI1TAB5 PO
[2020-03-17 18:54] LABS: APPEARANCE, URINE HAZY (CLEAR); BACTERIA, URINE AUTO NEGATIVE (NEGATIVE); BILIRUBIN, URINE AUTO NEGATIVE (NEGATIVE); BLOOD, URINE BLOOD NEGATIVE (NEGATIVE); COLOR, URINE YELLOW (YELLOW); GLUCOSE, URINE (UA) AUTO NEGATIVE (NEGATIVE); KETONE, URINE AUTO NEGATIVE (NEGATIVE); LEUKOCYTE ESTERASE, URINE AUTO NEGATIVE (NEGATIVE); MUCUS, URINE SMALL (NEGATIVE); NITRITE, URINE AUTO NEGATIVE (NEGATIVE); PROTEIN, URINE AUTO NEGATIVE (NEGATIVE); RBC, URINE AUTO 1 /HPF (0-3); SPECIFIC GRAVITY URINE AUTO 1.015 (1.002-1.035); SQUAMOUS EPITHELIAL CELL UR AU 0 /HPF (0-6); UROBILINOGEN, URINE AUTO 0.2 mg/dL (0.0-2.0); WBC, URINE AUTO 0 /HPF (0-3)
== END ==
LOC: M SMT 17:58
PROVIDERS: ATTEND Nurse Practitioner Family
DX: R31.0 Gross hematuria (principal); N39.0 Urinary tract infection, site not specified

== ENCOUNTER → 2020-03-28 | Outpatient (REF) | payer MEDICARE, OTHER ==
[2020-03-28 19:07] LABS: APPEARANCE, URINE MANUAL TURBID (CLEAR); COLOR, URINE MANUAL RED (YELLOW)
[2020-03-28 19:08] LABS: GLUCOSE, URINE (UA) MANUAL NEGATIVE (NEGATIVE); PH,URINE MAN 5.5 UNITS (5.0 - 7.0); PROTEIN, URINE MANUAL 3+ mg/dL (NEGATIVE); SPECIFIC GRAVITY,URINE MANUAL 1.015 (1.002-1.035)
[2020-03-28 19:09] LABS: BILIRUBIN, URINE MANUAL NEGATIVE (NEGATIVE); BLOOD URINE MANUAL POSITIVE (NEGATIVE); KETONE, URINE MANUAL NEGATIVE (NEGATIVE); LEUKOCYTE ESTERASE, URINE MAN POSITIVE (NEGATIVE); UROBILINOGEN, URINE MANUAL NORMAL (NORMAL)
[2020-03-28 19:15] LABS: NITRITE, URINE MANUAL NEGATIVE (NEGATIVE)
[2020-03-28 19:16] LABS: RBC, URINE TNTC /hpf (0-3)
[2020-03-28 19:17] LABS: BACTERIA, URINE LARGE AMOUNT; HYALINE CAST, URINE NONE SEEN /lpf (0-1); WBC, URINE TNTC /hpf (0-3)
[2020-03-28 19:18] LABS: AMORPHOUS SEDIMENT, URINE SMALL AMOUNT (NEGATIVE); SQUAMOUS EPITHELIAL CELL URINE NONE SEEN /hpf (SMALL AMT)
[2020-03-28 19:19] LABS: MUCUS, URINE SMALL AMOUNT (NEGATIVE)
== END ==
LOC: M SMT 17:23
PROVIDERS: ATTEND Nurse Practitioner Family
DX: N39.0 Urinary tract infection, site not specified (principal)

== ENCOUNTER 2020-03-31 10:27 | Emergency (ER) | payer MEDICARE, OTHER ==
[~2020-03-31] VITALS: Ht 177.8 cm; Wt 68.3 kg
[2020-03-31] MEDS ORDERED: ACETAMINOPHEN 325 MG TAB PO ONE (11:15)
--- NOTE | 2020-03-31 12:43 | REP ---
CHEST X-RAY: Two views. HISTORY: Trauma. FINDINGS: The patient is status post aortic valve replacement. Median sternotomy wires are seen. Heart is mildly enlarged. There is pleural thickening and slight blunting at the right lateral pleural angle. There is no evidence of pneumothorax. No left pleural effusion is seen. The aorta is calcific and tortuous and unchanged. There is apical soft tissue pleural thickening bilaterally, right greater than left. This is unchanged from February 14, 2020. Increased markings are seen in the right base also unchanged. Interstitial fibrosis pattern is noted unchanged. IMPRESSION: Chronic findings with cardiomegaly, slight blunting of the right lateral pleural angle, bibasilar interstitial fibrosis, granulomatous calcification and increased density right base and biapical pleuroparenchymal thickening all unchanged from February 14, 2020. Electronically Signed by Oneil Dumont MD 03/31/2020 12:52 P
--- NOTE | 2020-03-31 12:44 | REP ---
PELVIS LEFT HIP: Three views. HISTORY: Trauma. FINDINGS: AP view of the pelvis and AP and frog-leg views of the left hip demonstrate an intact bony pelvic ring. Proximal femurs appear intact. No hip fractures seen. There is some mild femoral acetabular spurring on the left. There is mild spurring on the right as well. IMPRESSION: Hip joint osteoarthritis. No pelvic or hip fracture seen. Electronically Signed by Oneil Dumont MD 03/31/2020 12:52 P
--- NOTE | 2020-03-31 12:44 | REP ---
RIGHT SHOULDER SERIES: Three views. HISTORY: Trauma. FINDINGS: The right glenohumeral and acromioclavicular joints are normally aligned. There is osteoarthritis with fragmented spurring at the AC joint. Periarticular soft tissue calcification is seen adjacent to the greater tuberosity of the proximal humerus consistent with calcific tendonitis or bursitis. No fracture is seen. IMPRESSION: Calcific tendonitis changes. Osteoarthritis. No fracture noted. Right apical pleural thickening as seen on chest x-ray. Electronically Signed by Oneil Dumont MD 03/31/2020 12:52 P
--- NOTE | 2020-03-31 12:52 | REP ---
LUMBAR SPINE SERIES: Five views. HISTORY: Trauma. FINDINGS: Five views of the lumbar spine show preserved vertebral body heights and normal alignment on lateral film. There is a levoconvex curvature on the frontal view. There is diffuse degenerative disc disease with disc space narrowing and osteophyte formation at each lumbar level. There is no evidence of spondylolysis or spondylolisthesis. There is mild anterior wedging deformity at the T12 vertebral body with osteophyte formation consistent with a chronic compression deformity. This is new however when compared with prior lateral chest x-ray from December 18, 2018. There is vascular calcification in a normal caliber aorta. No sacral fracture is seen. Psoas margins are symmetric. IMPRESSION: There is mild anterior wedge compression deformity at T12 which appears radiographically old however this is new when compared with the December 18, 2018 prior radiographs. There is diffuse degenerative spondylosis and levoconvex curve is seen. No acute fracture is appreciated. Electronically Signed by Oneil Dumont MD 03/31/2020 12:52 P
--- NOTE | 2020-03-31 12:55 | REP ---
CT BRAIN WITHOUT CONTRAST: HISTORY: Trauma. FINDINGS: Preliminary digital enrollment management manager radiograph is unremarkable. Bone window settings demonstrate an intact bony calvarium. On soft-tissue window settings there is moderate generalized volume loss. Small vessel atherosclerotic changes are seen. There is no evidence of intracranial hemorrhage. No extra-axial fluid collection is seen. No mass or midline shift is observed. No significant scalp hematoma is seen. Some vascular calcifications again noted. IMPRESSION: Vascular calcification and generalized volume loss. Small vessel changes. No skull fracture or intracranial injury seen. Electronically Signed by Oneil Dumont MD 03/31/2020 01:52 P
--- NOTE | 2020-03-31 13:02 | REP ---
CT STUDY OF THE CERVICAL SPINE WITHOUT CONTRAST: HISTORY: Trauma TECHNIQUE: Helical scanning is acquired and overlapping 2 mm high resolution axial images were generated and reviewed at bone and soft tissue window settings. Coronal and sagittal multiplanar re-formations images are generated. CT FINDINGS: There are degenerative spondylosis changes with moderate diffuse degenerative disc disease and bilateral osteoarthritic facet hypertrophy and sclerosis. Multilevel central canal stenosis and bilateral neural foraminal narrowing is again noted. No change when compared to the prior study of December 21, 2019. Right apical pleural thickening is again noted unchanged. Vascular calcification is visible. Central canal stenosis is visible at the C4-5, C5-6, and C6-7 as before. There is no evidence of cervical spine element fracture. No skull base fracture is seen. Cervical vertebral body heights are preserved. Alignment is normal. Facet joints are normally aligned bilaterally at each cervical level on multiplanar re-formations images. There is no evidence of intraspinal or paraspinal hematoma. No extra vertebral abnormality is seen. IMPRESSION: Advanced degenerative spondylosis changes. Multilevel foraminal narrowing and central canal stenosis unchanged from December and 2019. Otherwise, negative CT study of the cervical spine without contrast. No fracture seen. Electronically Signed by Oneil Dumont MD 03/31/2020 01:52 P
--- NOTE | 2020-03-31 13:03 | REP ---
MAXILLOFACIAL CT STUDY WITHOUT CONTRAST: HISTORY: Trauma. FINDINGS: The frontal and maxillary sinuses are clear. Ethmoid and sphenoid aeration is normal. Mastoid sinuses are clear. No mandibular or maxillary fracture is seen. Zygomatic arches are intact. Vascular calcifications noted. No skull base fracture is seen. There is no evidence of intraorbital or periorbital hematoma or mass lesion. IMPRESSION: No facial fracture noted. Electronically Signed by Oneil Dumont MD 03/31/2020 01:52 P
[2020-03-31 14:24] VITALS: BP 116/57
--- NOTE | 2020-04-01 08:03 | REP ---
CT STUDY OF THE THORACIC SPINE WITHOUT CONTRAST: HISTORY: T12 compression fracture on x-ray. Preliminary report is provided at the time of exam by Dr. Brown. TECHNIQUE: Helical scanning is acquired and 4 mm axial images are reformatted. Coronal and sagittal MPR images are generated and reviewed. CT FINDINGS: There is an anterior wedge compression deformity at the T12 vertebral body with approximately 40% loss of anterior vertebral body height. There is reactive sclerosis and anterior spurring. No definite acute fracture is seen. No other thoracic or lumbar spine fracture is appreciated. No paravertebral soft-tissue mass is seen nor is there evidence of hematoma. There are chronic pleuroparenchymal changes in the lung bases, right greater than left. Vascular calcification is noted. The patient is status post aortic valve replacement. IMPRESSION: No acute fracture seen. Electronically Signed by Oneil Dumont MD 04/01/2020 08:20 A
== END 2020-03-31 14:50 | disposition home or self-care (01) ==
LOC: M ED 10:27
DX: S00.211A Abrasion of right eyelid and periocular area, initial encounter (principal); W01.0XXA Fall on same level from slipping, tripping and stumbling without subsequent striking against object, initial encounter; Y92.009 Unspecified place in unspecified non-institutional (private) residence as the place of occurrence of the external cause; Y93.01 Activity, walking, marching and hiking; Y99.9 Unspecified external cause status; M47.812 Spondylosis without myelopathy or radiculopathy, cervical region; M48.02 Spinal stenosis, cervical region; M48.07 Spinal stenosis, lumbosacral region; M16.0 Bilateral primary osteoarthritis of hip; I51.7 Cardiomegaly; Z79.82 Long term (current) use of aspirin; Z79.899 Other long term (current) drug therapy; Z99.89 Dependence on other enabling machines and devices